=== PATIENT | male | born 1935 | race Caucasian/White ===

== ENCOUNTER → 2017-11-19 09:46 | Outpatient (CLI) | payer MEDICARE, SELFPAY ==
[2017-11-19 12:40] LABS: Absolute Lymphocyte Count 1.92 X10^3/ul (0.83-4.51); Absolute Neutrophil Count 3.8 X10^3/uL (2.0-7.7); Basophil# 0.01 X10^3/uL; Basophil% 0.2 % (0-1); Eosinophil# 0.06 X10^3/uL; Eosinophils% 0.9 % (0-5); Hematocrit 44.5 % (40-54); Hemoglobin 14.7 g/dl (13.0-16.5); Lymphocyte # 1.92 X10^3/ul (4.0); Lymphocyte % 28.8 % (19-41); Mean Corpuscular Hgb 31.6 pg (27.0-32.0); Mean Corpuscular Volume 95.7 fL (80-94); Mean Platelet Vol. 11.3 fl (6.2-12.0); Monocyte# 0.87 X10^3/uL; Monocyte% 13.1 % (0-10); Neutrophil # 3.79 X10^3/uL (2.7-7.7); Neutrophil % 56.8 % (47-70); Platelet Count 141 K/mm3 (150-450); RBC Distribution Width CV 12.5 % (11.6-14.6); RBC Distribution Width SD 42.2 fl (35.1-43.9); Red Blood Count 4.65 M/mm3 (4.6-6.2); White Blood Count 6.7 K/mm3 (4.4-11.0)
[2017-11-19 12:42] LABS: POSITIVE COUNT NO; POSITIVE DIFFERENTIAL NO; POSITIVE MORPHOLOGY NO
[2017-11-19 13:00] LABS: AST(SGOT) 24 U/L (15-37); Alanine Aminotransfer ALT/SGPT 35 U/L (16-61); Albumin, Serum 3.8 g/dL (3.2-5.0); Alkaline Phosphatase 51 U/L (45-117); Anion Gap 8 (5-15); BUN 17 mg/dL (7-18); BUN/Creat Ratio 16.3 RATIO (10-20); Calcium,Total 9.3 mg/dL (8.5-10.1); Chloride 107 mmol/L (98-107); Cholesterol 134 mg/dL (200); Creatinine, Serum 1.04 mg/dL (0.70-1.30); EST Glomerular Filtration Rate 73 mL/min (>60); Est Glom Filt Rate - Afr Amer 88 mL/min (>60); Globulin 3.7 g/dL (2.2-4.2); Glucose 96 mg/dL (74-106); High Density Lipoprotein 44 mg/dL; PSA,Total - Annual Screen 1.21 ng/mL (0.00-4.00); Potassium 4.6 mmol/L (3.5-5.1); Protein, Total 7.5 g/dL (6.4-8.2); Sodium Level 142 mmol/L (136-145); Triglycerides 155 mg/dL; Very Low Density Lipoprotein 31 mg/dL (5-40)
== END ==
PROVIDERS: Visit Provider Family Medicine
DX: Z00.01 Encounter for general adult medical examination with abnormal findings (principal); E78.5 Hyperlipidemia, unspecified; N40.0 Benign prostatic hyperplasia without lower urinary tract symptoms; Z12.5 Encounter for screening for malignant neoplasm of prostate; Z79.899 Other long term (current) drug therapy
CPT/HCPCS: 36415; 80053; 80061; 84153; 85025; G0103

== ENCOUNTER → 2018-09-02 | Outpatient (CLI) | payer MEDICARE, SELFPAY ==
--- NOTE | 2018-09-02 08:23 | CT_ITS ---
STUDY: CT BRAIN WITH AND WITHOUT CONTRAST REASON FOR EXAM: Male, 83 years old. SEVERE HEADACHES X6-8 MONTHS, DIZZINESS,NAUSEA,COLD SWEATS RADIATION DOSAGE (If Supplied By Facility): CTDIvol = ( 44.99 ) mGy, DLP = ( 1580.97 ) mGycm TECHNIQUE: Transaxial CT imaging of the brain was performed pre and post contrast administration. The examination was performed with intravenous administration of 50CC IV Isovue 370. Individualized dose optimization techniques were used for this CT. COMPARISON: None. FINDINGS: Normal soft tissue structures. Normal calvarium. There is mild cerebral atrophy with widening of the extra-axial spaces and ventricular dilatation. There are areas of decreased attenuation within the white matter tracts of the supratentorial brain, consistent with microvascular disease changes. Normal basal ganglia and thalami. Normal brainstem. Normal cerebellum. There is no intracranial hemorrhage. There are no findings of an acute ischemic infarction. Normal visualized paranasal sinuses. CT/Brain/Head W/WO Contrast IMPRESSION: Chronic involutional changes of the brain. Electronically Signed: Inez López, at 7:11 EDT Tel , Service support ,
[2018-09-02 08:46] LABS: EGFR FINGERSTICK > 60.0000 mL/min (>60)
== END | disposition home or self-care (01) ==
PROVIDERS: Family Provider Family Medicine; PCP Family Medicine; Referring Provider Family Medicine; Visit Provider Family Medicine
DX: R42 Dizziness and giddiness (principal); R51 Headache
CPT/HCPCS: 70470; Q9967

== ENCOUNTER 2018-09-16 14:00 | Outpatient (RCR) | payer MEDICARE, SELFPAY ==
--- NOTE | 2018-09-10 15:42 | HP.PTEVAL ---
Patient's Visit Information SAEID CHAMORRO is a 83 year old M referred to Physical Therapy by Jose Beaver DO with a diagnosis of dizzyness. Date of Evaluation: 09/10/18 Physical Therapist: Renzo Leon, CORWINT, OCS, CSCS - Visit Plan Frequency: 1x/Week Duration: 4-6 Weeks Plan: weekly as needed for dizzy check adn positional treatments /vestib rehab as needed/appropriate.Check oculomotor as needed and MSQ if positional is good. - Subjective Findings: Having dizzy spells for about a year but not in the last two weeks. When he does get dizzy, he can be sick to his stomach. That has happened 5x in last year. Had it a couple weeks ago sitting in chair. Another time sitting eating breakfast. May go a while in between incident btu can have up to two a week. Always aware that it might happen. Feels angel in between episodes. Can get dizzy if sits too quick and had one episode lying down. That was 3 months ago for 5 minutes. Activities normal. Basics not a problem. Sleeps well. Not employed. No hobbies. Got lazy on his workouts. Doctor thinks crystals are out of place. No AD needed and no falls. - Objective Walks normal with good balanace. C/S AROM is WNL and painfree. Trasnfersadn steps easily. - B hallpike. slight + R roll test for ageotropic nystagmus and dizzy x 2 seconds. Treated with BBQ roll and BPPV instruct as wella s precautions with any other symptoms to take him to the ER. - Balance Scores Functional Gait Assessment Score: 28 % Disability: 6.6700 CATSIB Score (Max score 120 seconds): 98 - Goals Goal 1:: abolish dizzyness for 2 more weeks adn - roll test. Goal Time Frame: 2-4 Weeks Goal 2:: Pt confident dizzyness is taken care of. Goal Time Frame: 2-4 Weeks - Rehabilitation Potential Physical Therapy Diagnosis: HC BPPV Rehabilitation Potential: Fair - Anticipated Interventions Patient/Client Instruction: Educate patient on: Condition, Plan of Care For the Purpose of:: To increase tolerance to activity/condition/position Comment: psoitional treatments/ex/vestibualr therapy For the Purpose of:: To increase tolerance to activity/condition/position Thank you for the opportunity to evaluate your patient. For Medicare and Medicare HMO plans, please review the plan of care and approve it. It will need to be FAXED BACK to us at [phone] for Medicare purposes. For Medicare only, by signing this I certify the plan of care. Please let me know if there are questions or concerns regarding this plan of care. Physician Signature: Date:
--- NOTE | 2018-09-16 14:22 | HP.PTDCSUM ---
HP - PT D/C Summary It has been my pleasure to treat SAEID CHAMORRO under orders from Jose Beaver DO, for the diagnosis of dizzyness for a total of 2 visit(s). Discharge Date: 09/16/18 Please see the following information for a summary of their discharge status. - Subjective Subjective: No dizzyness for 3 weeks now. Normal acitivities including steps adn housework. - Overall Improvement % Improvement: 100 - Objective Objective/Function: - B hallpike patricia, - roll test. Walks normal. No nystagmus with gaze or head shake. pursuit, saccades adn VOR ar enormal and asymptomatic. - Goals Goal 1:: abolish dizzyness for 2 more weeks adn - roll test. Goal Progress: Goal Met Goal 2:: Pt confident dizzyness is taken care of. Goal Progress: Goal Met - Plan Plan: d/c - D/C Information Discharge Comments: No dizzyness in 3 weeks and feeling confident with normal acitvities. Will contact doctor if dizzyness returns. If there are questions or concerns regarding this patient's physical therapy, please feel free to call me at [phone]. Thank you for the referral of this patient. Sincerely, Renzo Leon, DPT, OCS, CSCS
== END 2018-09-16 19:00 | disposition home or self-care (01) ==
LOC: PT 14:00
PROVIDERS: Family Provider Family Medicine; PCP Family Medicine; Referring Provider Family Medicine; Visit Provider Family Medicine
DX: R42 Dizziness and giddiness (principal)
CPT/HCPCS: 97161; 97530

== ENCOUNTER → 2018-12-10 | Outpatient (CLI) | payer MEDICARE, SELFPAY ==
[2018-12-10 09:36] LABS: Absolute Lymphocyte Count 1.62 X10^3/uL (0.83-4.51); Absolute Neutrophil Count 4.1 X10^3/uL (2.0-7.7); Basophil# 0.03 X10^3/uL; Basophil% 0.4 % (0-1); Eosinophils% 1.4 % (0-5); Hemoglobin 14.4 g/dL (13.0-16.5); Lymphocyte # 1.62 X10^3/ul (4.0); Lymphocyte % 22.3 % (19-41); Mean Corp Hgb Conc 32.7 g/dL (32-36); Mean Corpuscular Hgb 31.6 pg (27.0-32.0); Mean Corpuscular Volume 96.7 fL (80-94); Mean Platelet Vol. 10.6 fl (6.2-12.0); Monocyte# 1.39 X10^3/uL; Monocyte% 19.1 % (0-10); NRBC Flagged by Analyzer 0 % (0-5); Neutrophil # 4.11 X10^3/uL (2.7-7.7); Neutrophil % 56.5 % (47-70); Platelet Count 123 K/mm3 (150-450); RBC Distribution Width CV 12.2 % (11.6-14.6); RBC Distribution Width SD 43.5 fl (35.1-43.9); Red Blood Count 4.55 M/mm3 (4.6-6.2); White Blood Count 7.3 K/mm3 (4.4-11.0)
[2018-12-10 10:13] LABS: ALB/GLOB Ratio 1.1 RATIO (0.9-2.4); AST(SGOT) 22 U/L (15-37); Alanine Aminotransfer ALT/SGPT 28 U/L (16-61); Albumin, Serum 3.8 g/dL (3.2-5.0); Alkaline Phosphatase 57 U/L (45-117); Anion Gap 7 (5-15); BUN 21 mg/dL (7-18); BUN/Creat Ratio 18.9 RATIO (10-20); Chloride 105 mmol/L (98-107); Cholesterol 141 mg/dL (200); Creatinine, Serum 1.11 mg/dL (0.70-1.30); EST Glomerular Filtration Rate 67 mL/min (>60); Est Glom Filt Rate - Afr Amer 82 mL/min (>60); Globulin 3.6 g/dL (2.2-4.2); Glucose 93 mg/dL (74-106); High Density Lipoprotein 44 mg/dL; PSA,Total - Annual Screen 1.08 ng/mL (0.00-4.00); Potassium 4.4 mmol/L (3.5-5.1); Protein, Total 7.4 g/dL (6.4-8.2); Sodium Level 141 mmol/L (136-145); Triglycerides 186 mg/dL; Very Low Density Lipoprotein 37 mg/dL (5-40)
== END | disposition home or self-care (01) ==
LOC: LAB.FUTURE 08:12 → LAB 08:15
PROVIDERS: Family Provider Family Medicine; PCP Family Medicine; Referring Provider Family Medicine; Visit Provider Family Medicine
DX: E78.5 Hyperlipidemia, unspecified (principal); D69.6 Thrombocytopenia, unspecified; Z12.5 Encounter for screening for malignant neoplasm of prostate; Z79.899 Other long term (current) drug therapy
CPT/HCPCS: 36415; 80053; 80061; 84153; 85025; G0103

== ENCOUNTER → 2019-12-13 08:30 | Outpatient (CLI) | payer MEDICARE, SELFPAY ==
[2019-12-13 09:48] LABS: Absolute Lymphocyte Count 2.01 X10^3/uL (0.83-4.51); Basophil# 0.01 X10^3/uL; Basophil% 0.1 % (0-1); Eosinophils% 1.4 % (0-5); Hematocrit 43.6 % (40-54); Hemoglobin 14.1 g/dL (13.0-16.5); Lymphocyte # 2.01 X10^3/ul (4.0); Lymphocyte % 28.2 % (19-41); Mean Corp Hgb Conc 32.3 g/dL (32-36); Mean Corpuscular Hgb 31.6 pg (27.0-32.0); Mean Corpuscular Volume 97.8 fL (80-94); Mean Platelet Vol. 10.7 fl (6.2-12.0); Monocyte# 0.97 X10^3/uL; Monocyte% 13.6 % (0-10); NRBC Flagged by Analyzer 0 % (0-5); Neutrophil % 56.3 % (47-70); Platelet Count 133 K/mm3 (150-450); RBC Distribution Width SD 43.4 fl (35.1-43.9); Red Blood Count 4.46 M/mm3 (4.6-6.2); White Blood Count 7.1 K/mm3 (4.4-11.0)
[2019-12-13 10:17] LABS: AST(SGOT) 26 U/L (15-37); Alanine Aminotransfer ALT/SGPT 35 U/L (16-61); Albumin, Serum 3.6 g/dL (3.2-5.0); Alkaline Phosphatase 55 U/L (45-117); Anion Gap 3 (5-15); BUN 19 mg/dL (7-18); BUN/Creat Ratio 17.8 RATIO (10-20); Calcium,Total 8.9 mg/dL (8.5-10.1); Chloride 110 mmol/L (98-107); Cholesterol 140 mg/dL (200); Creatinine, Serum 1.07 mg/dL (0.70-1.30); EST Glomerular Filtration Rate 70 mL/min (>60); Est Glom Filt Rate - Afr Amer 85 mL/min (>60); Globulin 3.5 g/dL (2.2-4.2); Glucose 93 mg/dL (74-106); High Density Lipoprotein 47 mg/dL; Potassium 4.1 mmol/L (3.5-5.1); Protein, Total 7.1 g/dL (6.4-8.2); Sodium Level 142 mmol/L (136-145); Triglycerides 163 mg/dL; Very Low Density Lipoprotein 33 mg/dL (5-40)
== END ==
PROVIDERS: PCP Family Medicine; Visit Provider Family Medicine
DX: D69.6 Thrombocytopenia, unspecified (principal); E78.5 Hyperlipidemia, unspecified; Z79.899 Other long term (current) drug therapy; Z12.5 Encounter for screening for malignant neoplasm of prostate
CPT/HCPCS: 36415; 80053; 80061; 84153; 85025; G0103

== ENCOUNTER → 2019-12-19 12:12 | Outpatient (CLI) | payer MEDICARE, SELFPAY ==
--- NOTE | 2019-12-19 12:13 | US_ITS ---
STUDY: THYROID ULTRASOUND REASON FOR EXAM: Male, 84 years old. Nodules TECHNIQUE: Ultrasound evaluation of the thyroid was performed with real-time and static irwin-scale imaging. COMPARISON: None. FINDINGS: RIGHT LOBE: The right lobe of the thyroid gland measures 4.5 cm x 1.5 cm x 1.3 cm. There is a homogeneous echotexture. There is a 4 mm x 3 mm x 3 mm solid hypoechoic nodule in the upper pole. A similar appearing nodular density in the upper pole measures 2 mm x 2 mm x 2 mm. LEFT LOBE: The left lobe of the thyroid gland measures 3.9 cm x 1.2 cm x 1.4 cm. There is a homogeneous echotexture. There is an 8 mm x 6 mm x 3 mm isoechoic heterogeneous nodule in the midpole. A similar appearing nodule is seen in the lower pole measuring 2 mm x 3 mm x 3 mm. ISTHMUS: The isthmus measures 3.7 mm. Small bilateral benign appearing cervical lymph nodes are seen. The larger is in the left side measuring 2 cm x 0.97 x 0.6 US/Thyroid IMPRESSION: Subcentimeters nodules are seen in both lobes. Small benign-appearing bilateral cervical lymph nodes. Electronically Signed: Hamilton Robledo, at 15:01 EST , Service support ,
== END ==
PROVIDERS: PCP Family Medicine; Referring Provider Family Medicine; Visit Provider Family Medicine
DX: E04.1 Nontoxic single thyroid nodule (principal)
CPT/HCPCS: 76536

== ENCOUNTER 2020-02-26 09:27 | Outpatient (RCR) | payer MEDICARE, SELFPAY | END 2020-02-26 23:59 | LOC: IMMUN 09:27 | PROVIDERS: PCP Family Medicine; Visit Provider Family Medicine | DX: Z23 Encounter for immunization (principal) | CPT/HCPCS: 0011A; 0012A; 91301 ==

== ENCOUNTER → 2020-08-23 15:31 | Outpatient (CLI) | payer MEDICARE, SELFPAY ==
[2020-08-23 18:10] LABS: Creatinine, Serum 0.93 mg/dL (0.70-1.30); EST Glomerular Filtration Rate 82 mL/min (>60); Est Glom Filt Rate - Afr Amer 99 mL/min (>60)
== END ==
PROVIDERS: PCP Family Medicine; Referring Provider Otolaryngology; Visit Provider Otolaryngology
DX: H93.11 Tinnitus, right ear (principal)
CPT/HCPCS: 36415; 82565

== ENCOUNTER → 2020-09-01 17:34 | Outpatient (CLI) | payer MEDICARE, SELFPAY ==
--- NOTE | 2020-09-01 17:42 | MRI_ITS ---
EXAM: MR HEAD WITHOUT AND WITH INTRAVENOUS CONTRAST CLINICAL INDICATION: Right ear tinnitus. Dizziness. TECHNIQUE: Multiplanar and multisequence MR images of the brain were obtained without and with intravenous contrast. This report was created using [employer] report [employer] technology. CONTRAST: IV Dotarem 18ml COMPARISON: MRI brain with and without contrast 04/23/2014. CT head without contrast 09/02/2018. FINDINGS: BRAIN AND EXTRA-AXIAL SPACES: No diffusion restriction to suspect acute or subacute ischemic infarct. 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 No intra- or extra-axial hemorrhage. No intracranial mass or mass effect. Ventricles are appropriate for age. No hydrocephalus. Basal cisterns are patent. SELLA: Unremarkable. Normal sella turcica, pituitary gland, infundibular stalk, optic chiasm and hypothalamus. AUDITORY SYSTEM: Thin sections of the internal auditory canals show no abnormal contrast enhancement of the 7th and 8th nerve bundles. No abnormal enhancement of the membranous labyrinths. BONES/JOINTS: Unremarkable. No discrete lytic or blastic abnormalities. SINUSES: Unremarkable as visualized. Clear. MASTOID AIR CELLS: Unremarkable as visualized. Clear. ORBITS: Unremarkable as visualized. Both globes, extraocular muscles, optic nerves and retrobulbar fat appear unremarkable. VASCULATURE: Unremarkable as visualized. Normal flow voids in the major intracranial circulation. MRI/Brain W/WO Contrast IMPRESSION: 1. No MRI evidence of acute or subacute ischemic infarct or acute intracranial abnormality. 2. 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 3. Normal MRI of the IACs without and with contrast. 4. No interval change when compared to 04/23/2014. COMMENT: If right tinnitus is pulsatile and dural AV fistula is a clinical consideration, cerebral arteriogram with bilateral external carotid arteriogram will be more helpful. Electronically Signed: Jacob Gill MD at 13:33 EDT , Service support ,
== END ==
PROVIDERS: PCP Family Medicine; Referring Provider Otolaryngology; Visit Provider Otolaryngology
DX: H93.11 Tinnitus, right ear (principal)
CPT/HCPCS: 70553; A9575

== ENCOUNTER 2020-10-26 05:42 | Inpatient (IN) | payer MEDICARE, SELFPAY ==
[2020-10-26] VITALS (19 sets, daily range): BP systolic 102–151; BP diastolic 55–106; PULSE 64–100; RESP 18–30; TEMP 36.1–38; O2SAT 88–96; BMI 28.5
--- NOTE | 2020-10-26 06:04 | RAD_ITS ---
STUDY: X-RAY CHEST REASON FOR EXAM: Male, 85 years old. SOB TECHNIQUE: Single AP portable view of the chest. COMPARISON: None. FINDINGS: The patchy right upper lobe patchy left lower lobe infiltrate. There is no demonstrated pleural abnormality. Normal size heart. Normal mediastinum and cheyanne. Normal visualized pulmonary arteries. Normal visualized aortic arch and descending thoracic aorta. There are diffuse degenerative changes of the visualized thoracic spine. Normal visualized ribs, clavicles, and shoulders. There is no demonstrated abnormality of the visualized soft tissue structures of the upper abdomen. RAD/Chest 1 View (Portable) IMPRESSION: Multifocal infiltrates suspicious for pneumonia. Electronically Signed: Kathie Hall MD at 7:07 EDT Tel , Service support ,
--- NOTE | 2020-10-26 06:04 | EKG12_ITS ---
Test Reason : SPB Blood Pressure : / mmHG Vent. Rate : 085 BPM Atrial Rate : 085 BPM P-R Int : 174 ms QRS Dur : 078 ms QT Int : 326 ms P-R-T Axes : -06 019 077 degrees QTc Int : 387 ms Normal sinus rhythm Nonspecific T wave abnormality Abnormal ECG Confirmed by FILIBERTO FOX, ANITA ([id number]), commercial production editor KORI UMANZOR ([id number]) on 10/29/2020 10:01:54 AM Referred By: TRISH Confirmed By:ANITA DE LOS SANTOS MD
--- NOTE | 2020-10-26 06:06 | EDS_ITS ---
HPI History of Present Illness Chief Complaint: Shortness of Breath Informant: patient and family Narrative Narrative: Patient presents with dyspnea. This started in early September. It sounds like it was a relatively short onset. He has had some cough but no sputu m production. No hemoptysis. No travel surgery immobilization personal family history of DVT or PE. He states he gets short of breath when he walks across the room or walks any distance. He is able to lay flat. The reason he came in today is that his daughter checked his oxygen level at home and it was dropping into the 80s. It sounds like he saw his doctor about a month ago and had a work-up with some x-rays and blood work but nothing showed. He has not been having fevers. He does have myalgias but has been having those for 5 or 6 weeks. He is a former smoker but quit 48 years ago. He has no history of heart disease or lung disease. He does have cholesterol. No known chemical exposures or significant chemical exposures during his life. Activity makes the symptoms worse and rest makes them better. When I talked to the patient's , she states that this did start a couple months ago but that he seems to have gotten worse in the last few days just as she has. PFSH [facility] Medical History High cholesterol Home Medications simvastatin 20 mg PO QHS 07/24/13 [History Last Taken Unknown] ibuprofen-diphenhydramine cit [Advil PM] 1 cap PO QHS 10/26/20 [History Last Taken Unknown] Allergy/AdvReac Type Severity Reaction Status Date / Time No Known Allergies Allergy Verified 10/26/20 05:45 Surgical History H/O arthroscopic knee surgery Social History Smoking Status: Former smoker ROS ROS ED Constitutional Constitutional ED: Denies chills or fever(s) Eyes Eyes: Denies blurry vision ENT ENT ED: Denies rhinorrhea or sore throat Cardiovascular Cardiovascular: Denies chest pain or orthopnea Respiratory/Chest Respiratory/Chest: Reports cough, dyspnea and dyspnea on exertion; Denies ortho pnea Gastrointestinal Gastrointestinal: Denies abdominal pain, nausea or vomiting Genitourinary Genitourinary ED: Denies dysuria Musculoskeletal Musculoskeletal: Reports myalgias Integumentary Denies rash Neurologic Neurologic: Denies paresthesias or weakness Endocrine Endocrinology: Denies polydipsia or polyuria Hematologic/Lymphatic Hematologic/Lymphatic: Denies easy bleeding or easy bruising Allergic/Immunologic Allergic/Immunologic ED: Denies urticaria EXAM Physical Exam Const Vital Signs: 10/26/20 05:43 10/26/20 05:45 10/26/20 05:51 Temperature 98.3 F 98.3 F Temperature Source Temporal Temporal Pulse Rate 88 88 Respiratory Rate 28 H 28 H Respiratory Effort Short of Breath Labored Respiratory Pattern Tachypnea Blood Pressure 129/106 H 130/67 H Blood Pressure Mean 113 88 Pulse Ox 92 92 Oxygen Delivery Method Room Air Room Air Oxygen Flow Rate (L/min) 10/26/20 06:18 10/26/20 06:49 10/26/20 07:26 Temperature 100.4 F H 99.3 F H Temperature Source Oral Temporal Pulse Rate 94 90 83 Respiratory Rate 20 H 30 H 29 H Respiratory Effort Respiratory Pattern Normal Blood Pressure 116/64 102/62 Blood Pressure Mean 81 75 Pulse Ox 96 94 Oxygen Delivery Method Nasal Cannula Nasal Cannula Oxygen Flow Rate (L/min) 2 2 10/26/20 08:47 10/26/20 08:49 Temperature 100 F H 100 F H Temperature Source Temporal Temporal Pulse Rate 81 100 Respiratory Rate 26 H 26 H Respiratory Effort Respiratory Pattern Blood Pressure 105/55 L 105/55 L Blood Pressure Mean 71 71 Pulse Ox 94 94 Oxygen Delivery Method Nasal Cannula Nasal Cannula Oxygen Flow Rate (L/min) 2 2 Positive well nourished and well developed Constitutional Narrative: Patient looks nontoxic but his work of breathing is increased. General Appearance ED: well developed; Negative for pallor HEENT Reports moist mucous membranes atraumatic Eyes General Eye ED: Negative for pale conjunctiva or scleral icterus Neck no JVD Resp Resp Narrative: Patient has creased respiratory effort. His respiratory rate is increased. When he talks his saturations dropped down to 88% just sitting in the bed. He does have some basilar crackles on each side. Cardio regular rate, regular rhythm and no murmurs GI non-tender Palpation: soft Back/Spine no CVA tenderness and normal to inspection Extremity normal to inspection General Extremety ED: Negative for edema or tenderness General Extremity: Negative for edema Neuro [place] Coma Scale: document GCS findings Sensorium / Orientation: alert Psych mental status grossly normal Skin General Skin Exam: Negative for pallor Lesions: no lesions Rashes: no rashes MDM MDM MDM Narrative Medical decision making narrative: Patient CBC showed no marked abnormalities. Electrolytes showed mild BUN to creatinine ratio increased but no acute process. BNP was negative. Chest x-ray was concerning for multiple infiltrates. His Covid is positive. However, his symptoms started back in early September. They seem to get a little bit better and now they are getting worse again. With the story I did do a CT scan of his chest to make sure we were not seeing other illness. There is no sign of pulmonary embolus or other process. There is a multiple infiltrative process consistent with Covid. This patient desatted just on room air sitting in the bed. He dropped to 88%. He looks dyspneic. He has increased respiratory rate. I do not think this is a good patient to go home on oxygen acutely. I have hospitalist on page. He has been treated with Decadron. He did get a bit of a fever here so he is given Tylenol. Patient requested something for anxiety. Evidently he has been on meds for this before. He is just nervous because of the Covid and being admitted. I will give him a very small dose of Ativan. Lab Data Attestation: I reviewed the patient's lab results. Labs: Laboratory Results - last 24 hr 10/26/20 10/26/20 10/26/20 06:20 06:20 06:20 WBC 6.8 RBC 4.37 L Hgb 14.0 Hct 43.0 MCV 98.4 H MCH 32.0 MCHC 32.6 RDW Std Deviation 43.9 RDW Coeff of Kapil 12.1 Plt Count 67 L MPV 10.4 Immature Gran % (Auto) 0.400 Neut % (Auto) 68.4 Lymph % (Auto) 14.1 L [place] % (Auto) 16.0 H Eos % (Auto) 1.0 Baso % (Auto) 0.1 Absolute Neuts (auto) 4.6 Absolute Lymphs (auto) 0.95 Nucleated RBC % 0 Sodium 136 Potassium 4.1 Chloride 106 Carbon Dioxide 25.0 Anion Gap 5 BUN 24 H Creatinine 0.97 Estim Creat Clear Calc 58.53 Est GFR (MDRD) Af Amer 95 Est GFR (MDRD) Non-Af 78 BUN/Creatinine Ratio 24.8 H Glucose 112 H Calcium 8.7 Troponin I High Sens 16 B-Natriuretic Peptide 41.3 Radiography Diagnostic Testing: Radiology Impression Chest X-Ray 10/26/20 06:04 IMPRESSION: Multifocal infiltrates suspicious for pneumonia. Electronically Signed: Kathie Hall MD at 7:07 EDT Tel , Service support , Chest CTA 10/26/20 07:04 IMPRESSION: No demonstrated pulmonary embolism or arterial dissection. Bilateral pneumonia. Electronically Signed: Christophe Thomson MD at 8:01 EDT , Service support , EKG Initial EKG: Comments: EKG done for dyspnea read by me shows normal sinus rhythm with overall rate of 85. No ectopy. Nonspecific ST and T wave changes but no sign of acute infarct or ischemia. SC interval, QRS duration and QTc are normal. Discharge Plan Dx/Rx/DC Orders Clinical Impression: Pneumonia due to 2019-nCoV, Hypoxia Disposition Disposition: Acute Care Hospital [facility]
[2020-10-26 06:32] LABS: Absolute Lymphocyte Count 0.95 X10^3/uL (0.83-4.51); Absolute Neutrophil Count 4.6 X10^3/uL (2.0-7.7); Basophil# 0.01 X10^3/uL; Basophil% 0.1 % (0-1); Eosinophil# 0.07 X10^3/uL; Lymphocyte # 0.95 X10^3/ul (0.83-4.51); Lymphocyte % 14.1 % (19-41); Mean Corp Hgb Conc 32.6 g/dL (32-36); Mean Corpuscular Volume 98.4 fL (80-94); Mean Platelet Vol. 10.4 fl (6.2-12.0); Monocyte# 1.08 X10^3/uL; NRBC Flagged by Analyzer 0 % (0-5); Neutrophil # 4.61 X10^3/uL (2.7-7.7); Neutrophil % 68.4 % (47-70); POSITIVE COUNT YES; Platelet Count 67 K/mm3 (150-450); RBC Distribution Width CV 12.1 % (11.6-14.6); RBC Distribution Width SD 43.9 fl (35.1-43.9); Red Blood Count 4.37 M/mm3 (4.6-6.2); White Blood Count 6.8 K/mm3 (4.4-11.0)
[2020-10-26] MEDS: Ipratropium/Albuterol Sulfate 3 ML AMPUL.NEB INHALATION (06:34)
[2020-10-26 06:36] LABS: Differential Indicated SCAN CRITERIA MET
[2020-10-26 06:51] LABS: Anion Gap 5 (5-15); BUN 24 mg/dL (7-18); BUN/Creat Ratio 24.8 RATIO (10-20); Calcium,Total 8.7 mg/dL (8.5-10.1); Chloride 106 mmol/L (98-107); Creatinine, Serum 0.97 mg/dL (0.70-1.30); EST Glomerular Filtration Rate 78 mL/min (>60); Est Glom Filt Rate - Afr Amer 95 mL/min (>60); Estimated Creatinine Clearance 58.53 ml/min; Glucose 112 mg/dL (74-106); Potassium 4.1 mmol/L (3.5-5.1); Sodium Level 136 mmol/L (136-145); Troponin-I HS 16 pg/mL (3.0-78.0)
--- NOTE | 2020-10-26 07:04 | CT_ITS ---
STUDY: CTA CHEST w w/o REASON FOR EXAM: Male, 85 years old. pe SOB, WEAKNESS, FATIGUE, + COVID, HAD VACCINE RADIATION DOSAGE (If Supplied By Facility): CTDIvol = ( 16.8 ) mGy, DLP = ( 429.24 ) mGycm TECHNIQUE: The examination was performed with and without the intravenous administration of IV 100mL Isovue-370. Post-processing of the angiographic images was performed, with multiplanar reformation and 3D reconstruction. Individualized dose optimization techniques were used for this CT. COMPARISON: None. FINDINGS: Groundglass infiltrates in the lower lung brown. There are degenerative changes of the shoulders. There is no pneumothorax. There is no demonstrated pleural abnormality. Minimal infiltrate in the right middle lobe and lingula. Diffuse groundglass infiltrate of the right upper lobe greater than the left. There are calcifications of the coronary arteries. Normal mediastinum. Normal hilar regions. Normal pulmonary arteries. There is atherosclerotic calcification of the aortic arch with tortuosity and elongation of the aortic arch and descending thoracic aorta. There are multi-level degenerative changes of the thoracic spine. Simple cysts of the liver. No follow-up required. There is a hiatal hernia. CT/CTA Chest W/WO Contrast IMPRESSION: No demonstrated pulmonary embolism or arterial dissection. Bilateral pneumonia. Electronically Signed: Christophe Thomson MD at 8:01 EDT , Service support ,
[2020-10-26 07:08] LABS: BNP,B-Type NATRIURETIC PEPTIDE 41.3 pg/mL (0-100)
[2020-10-26] MEDS: dexAMETHasone 4 MG/ML Vial 6 MG IV (07:20)
[2020-10-26] MEDS: Acetaminophen 325 MG Tablet 650 MG PO (08:46)
[2020-10-26] MEDS: LORazepam 2 MG/ML Syringe 0.25 MG IV (08:55)
[2020-10-26 09:30] LABS: AST(SGOT) 34 U/L (15-37); Alanine Aminotransfer ALT/SGPT 33 U/L (16-61); Albumin, Serum 2.9 g/dL (3.2-5.0); Alkaline Phosphatase 41 U/L (45-117); Bilirubin, Direct 0.13 mg/dL (0.00-0.30); Globulin 3.6 g/dL (2.2-4.2); Protein, Total 6.5 g/dL (6.4-8.2)
[2020-10-26] MEDS: Enoxaparin 40 MG/0.4 ML Syringe SC (14:44)
--- NOTE | 2020-10-26 19:47 | HP.PCM.HOS_ITS ---
HPI - General General Date of Admission: 10/26/20 Date of Service: 10/26/20 Chief Complaint: Shortness of breath HPI Narrative SAEID CHAMORRO, is a 85 M who presents to the emergency room at [facility] with a chief complaint of shortness of breath, he complained somewhat of shortness of breath early in September of this year, he also complained of cough but no sputum production. Patient was immunized for COVID-19. His daughter noted at home today that his oxygen level was dropping when his pulse ox was taken hyphenated been dropping into the 80s. Patient is a former smoker but quit 48 years ago. Work-up in the emergency room included labs which showed a normal white blood cell count, CTA of the chest was done which showed no evidence of pulmonary embolus but there was an infiltrative process noted consistent with Covid. At rest, patient's pulse ox dropped to 88% in the emergency room patient exhibited an increased respiratory rate in the emergency room. Patient was admitted to [facility] for COVID-19 pneumonia with hypoxic respiratory failure. FORMERLY [facility], [facility]–1983 Medical History High cholesterol Home Medications simvastatin 20 mg PO QODAY 07/24/13 [History Last Taken 10/25/20] acetaminophen [Tylenol Ex Str Arthritis Pain] 1,000 mg PO Q6H PRN 10/26/20 [History Last Taken Unknown] ibuprofen-diphenhydramine cit [Advil PM] 1 cap PO QHS 10/26/20 [History Last T aken Unknown] Allergy/AdvReac Type Severity Reaction Status Date / Time No Known Allergies Allergy Verified 10/26/20 05:45 Surgical History H/O arthroscopic knee surgery Social History Smoking Status: Former smoker ROS Constitutional Constitutional: Reports fatigue; Denies anorexia, change in weight, fever(s), n ight sweats or weakness Eyes Eyes: Denies blurry vision, change in vision, discharge from eye(s) or eye pain ENT HEENT: Denies abnormal hearing Cardiovascular Cardiovascular: Reports dyspnea on exertion; Denies chest pain, claudication, edema or palpitations Respiratory/Chest Respiratory/Chest: Reports cough, dyspnea and shortness of breath with exertion; Denies hemoptysis or shortness of breath at rest Gastrointestinal Gastrointestinal: Denies abdominal pain, coffee ground emesis, constipation, diarrhea, dyspepsia, hematemesis, hematochezia, melena, nausea or vomiting Genitourinary Genitourinary: Denies dysuria, hematuria, urinary frequency, urinary hesitancy, urinary incontinence or urinary urgency Musculoskeletal Musculoskeletal: Denies back pain, joint pain, joint stiffness, joint swelling, myalgias or neck pain Neurologic Neurologic: Denies abnormal gait, abnormal speech, dizziness, focal weakness, headache(s), loss of vision, numbness, other visual disturbances, paresthesias, syncope or tingling Psychiatric Psychiatric: Denies anxiety, cognitive impairment, depression, irritability, mood swings or suicidal ideation Endocrine Endocrinology: Denies change in body appearance, cold intolerance, excessive sweating, heat intolerance, polydipsia or polyuria Hematologic/Lymphatic Hematologic/Lymphatic: Denies none, anemia, easy bleeding, easy bruising or lymphadenopathy Allergic/Immunologic Allergic/Immunologic: Denies rhinitis, urticaria, eczemia or asthma Vital Signs Vital Signs Vital Signs: 10/26/20 05:43 10/26/20 05:45 10/26/20 05:51 Temperature 98.3 F 98.3 F Temperature Source Temporal Temporal Pulse Rate 88 88 Respiratory Rate 28 H 28 H Respiratory Effort Short of Breath Labored Respiratory Depth Respiratory Pattern Tachypnea Blood Pressure 129/106 H 130/67 H Blood Pressure Mean 113 88 Blood Pressure Source Blood Pressure Position Blood Pressure Location Pulse Ox 92 92 Oxygen Delivery Method Room Air Room Air Oxygen Flow Rate (L/min) 10/26/20 06:18 10/26/20 06:49 10/26/20 07:26 Temperature 100.4 F H 99.3 F H Temperature Source Oral Temporal Pulse Rate 94 90 83 Respiratory Rate 20 H 30 H 29 H Respiratory Effort Respiratory Depth Respiratory Pattern Normal Blood Pressure 116/64 102/62 Blood Pressure Mean 81 75 Blood Pressure Source Blood Pressure Position Blood Pressure Location Pulse Ox 96 94 Oxygen Delivery Method Nasal Cannula Nasal Cannula Oxygen Flow Rate (L/min) 2 2 10/26/20 08:47 10/26/20 08:49 10/26/20 10:00 Temperature 100 F H 100 F H 97.8 F Temperature Source Temporal Temporal Oral Pulse Rate 81 100 78 Respiratory Rate 26 H 26 H 18 Respiratory Effort Respiratory Depth Normal Respiratory Pattern Blood Pressure 105/55 L 105/55 L 110/68 Blood Pressure Mean 71 71 82 Blood Pressure Source Monitor Blood Pressure Position Semi-Fowlers Blood Pressure Location Left Arm Pulse Ox 94 94 Oxygen Delivery Method Nasal Cannula Nasal Cannula Nasal Cannula Oxygen Flow Rate (L/min) 2 2 2 10/26/20 13:27 10/26/20 15:45 10/26/20 16:30 Temperature 97.0 F L 97.9 F Temperature Source Temporal Oral Pulse Rate 71 71 73 Respiratory Rate 18 20 H Respiratory Effort Respiratory Depth Respiratory Pattern Blood Pressure 103/64 149/78 H Blood Pressure Mean 77 101 Blood Pressure Source Monitor Monitor Blood Pressure Position Sitting Sitting Blood Pressure Location Left Arm Right Arm Pulse Ox 95 92 Oxygen Delivery Method Nasal Cannula Nasal Cannula Oxygen Flow Rate (L/min) 2 3 10/26/20 16:39 Temperature Temperature Source Pulse Rate Respiratory Rate Respiratory Effort Respiratory Depth Respiratory Pattern Blood Pressure Blood Pressure Mean Blood Pressure Source Blood Pressure Position Blood Pressure Location Pulse Ox 88 Oxygen Delivery Method Room Air Oxygen Flow Rate (L/min) Weight Weight: 90.1 kg Body Mass Index (BMI) 28.5 Physical Exam Const alert, oriented x3, no apparent distress and healthy appearing General Appearance: cooperative, well kempt and well developed Orientation / Consciousness: awake, oriented to person, oriented to place and oriented to time HEENT normocephalic and moist oral mucous membranes Eyes PERRL, EOMs intact bilaterally and conjunctivae normal Neck nuchal rigidity, supple, no JVD, thyroid normal and no carotid bruits General: trachea midline Resp normal respiratory effort, no retractions, no use of accessory muscles and clear to auscultation bilaterally Auscultation: wheezes expiratory wheezes and scattered wheezes; Negative for rales or rhonchi Cardio regular rate, regular rhythm, no murmurs, no rub and no gallops GI normal to inspection, nondistended, normoactive bowel sounds, soft to palpation, non-tender and non-distended Extremity no clubbing, cyanosis or edema Skin no rashes or lesions noted General Skin Exam: no breakdown Neuro oriented x3, CN's II-XII intact bilaterally, no focal motor deficits and no sensory deficits noted Sensorium / Orientation: awake and alert Speech: speech normal Psych thought process normal and affect normal Results Lab / Micro Data Result Diagrams: 10/26/20 06:20 10/26/20 06:20 Labs: Laboratory Results - last 24 hr 10/26/20 06:20: WBC 6.8, RBC 4.37 L, Hgb 14.0, Hct 43.0, MCV 98.4 H, MCH 32.0, MCHC 32.6, RDW Std Deviation 43.9, RDW Coeff of Kapil 12.1, Plt Count 67 L, MPV 10.4, Immature Gran % (Auto) 0.400, Neut % (Auto) 68.4, Lymph % (Auto) 14.1 L, [place] % (Auto) 16.0 H, Eos % (Auto) 1.0, Baso % (Auto) 0.1, Absolute Neuts (auto) 4.6, Absolute Lymphs (auto) 0.95, Nucleated RBC % 0 10/26/20 06:20: Sodium 136, Potassium 4.1, Chloride 106, Carbon Dioxide 25.0, Anion Gap 5, BUN 24 H, Creatinine 0.97, Estim Creat Clear Calc 58.53, Est GFR (MDRD) Af Amer 95, Est GFR (MDRD) Non-Af 78, BUN/Creatinine Ratio 24.8 H, Glucose 112 H, Calcium 8.7, Troponin I High Sens 16 10/26/20 06:20: B-Natriuretic Peptide 41.3 10/26/20 06:20: Total Bilirubin 0.50, Direct Bilirubin 0.13, AST 34, ALT 33, Alkaline Phosphatase 41 L, Total Protein 6.5, Albumin 2.9 L, Globulin 3.6 Micro: Microbiology 10/26/20 05:47 Nasal Secretion SARS-CoV-2 Antigen (Rapid) - Final SARS-CoV-2 (COVID 19) Radiology Impression Chest X-Ray 10/26/20 06:04 IMPRESSION: Multifocal infiltrates suspicious for pneumonia. Electronically Signed: Kathie Hall MD at 7:07 EDT Tel , Service support , Chest CTA 10/26/20 07:04 IMPRESSION: No demonstrated pulmonary embolism or arterial dissection. Bilateral pneumonia. Electronically Signed: Christophe Thomson MD at 8:01 EDT , Service support , Assessment & Plan Assessment/Plan (1) Pneumonia due to 2019-nCoV: PLAN: 1. COVID-19 pneumonia-patient was placed on remdesivir and dexamethasone-day 1 #2 acute hypoxic respiratory failure secondary to #1, patient has been having some wheezing on my examination tonight, I have decided to place patient on 3 times daily aerosol treatments. #3 hyperlipidemia-patient is on simvastatin Charges/Coding Visit Charges Inpatient E&M: 86162 Init Hosp L3
[2020-10-26] MEDS: Albuterol 2.5 MG/3 ML VIAL.NEB. INHALATION (22:40)
[2020-10-27] VITALS (20 sets, daily range): BP systolic 123–164; BP diastolic 68–89; PULSE 64–109; RESP 16–22; TEMP 36.5–37.2; O2SAT 91–96
[2020-10-27] MEDS: Temazepam 15 MG Capsule PO (01:20)
[2020-10-27 07:04] LABS: Hematocrit 43.8 % (40-54); Hemoglobin 14.5 g/dL (13.0-16.5); Mean Corp Hgb Conc 33.1 g/dL (32-36); Mean Corpuscular Hgb 32.1 pg (27.0-32.0); Mean Corpuscular Volume 96.9 fL (80-94); Mean Platelet Vol. 10.3 fl (6.2-12.0); POSITIVE COUNT YES; Platelet Count 78 K/mm3 (150-450); Red Blood Count 4.52 M/mm3 (4.6-6.2); White Blood Count 12.6 K/mm3 (4.4-11.0)
[2020-10-27 07:46] LABS: ALB/GLOB Ratio 0.8 RATIO (0.9-2.4); AST(SGOT) 45 U/L (15-37); Alanine Aminotransfer ALT/SGPT 35 U/L (16-61); Albumin, Serum 3.1 g/dL (3.2-5.0); Alkaline Phosphatase 43 U/L (45-117); Anion Gap 7 (5-15); BUN 27 mg/dL (7-18); BUN/Creat Ratio 25.2 RATIO (10-20); Calcium,Total 8.8 mg/dL (8.5-10.1); Chloride 108 mmol/L (98-107); Creatinine, Serum 1.07 mg/dL (0.70-1.30); EST Glomerular Filtration Rate 70 mL/min (>60); Est Glom Filt Rate - Afr Amer 85 mL/min (>60); Estimated Creatinine Clearance 53.06 ml/min; Glucose 119 mg/dL (74-106); Potassium 4.1 mmol/L (3.5-5.1); Protein, Total 7.1 g/dL (6.4-8.2); Sodium Level 136 mmol/L (136-145)
[2020-10-27] MEDS: Albuterol 2.5 MG/3 ML VIAL.NEB. INHALATION ×3 (08:17→20:28)
[2020-10-27] MEDS: dexAMETHasone 4 MG Tablet 6 MG PO (08:30)
[2020-10-27] MEDS: Enoxaparin 40 MG/0.4 ML Syringe SC (08:30)
--- NOTE | 2020-10-27 10:33 | NURSING ---
attempt to call cornelio , daughter in RX unsucessful, phone answered then placed on hold for long period of time
--- NOTE | 2020-10-27 11:12 | NURSING ---
assisted pt w/calling and then talked to his daughter Mitesh for update
--- NOTE | 2020-10-27 11:30 | CASEMGMT ---
AVINASH HAUSER Assessment: Face to Face with pt for initial transition planning/care coordination assessment. AVINASH HAUSER introduced self and role at [facility], pt voices understanding and consents to assessment. Pt is A/O x4 and answers all questions appropriately at this time. Pt lying in bed with O2 on in and visibly sob with conversation. Care providers, pharmacy, and demographics verified/updated. Admitting Dx: COVID PCP:Saranya Specialists: Carmen, ENT; Leo, eye; Julio, derm Preferred Pharmacy: [facility] Retail Insurance: [employer] Prescription Benefit: yes LW/HPOA: Pt has a LW/DPOA on file at [facility]. His DPOA is his Parisa Vega. LNOK: Parisa Vega, ; Mitesh Kent, dtr Living Arrangements: Pt lives with in a single story condo with no steps to enter. Pt states he was I in ADL's prior to hospitalization. Pt denies concerns at home. Transportation: Pt has not driven in the last week and a half but typically does. DME/HHC/SNF: Pt has no DME in the home for himself. Pt has had previous HHC but is unsure of the name of the agency. Pt denies SNF stays. Pt is positive for COVID as well. Pt states his family is able to bring him and his groceries and supplies. Provided pt with a list of local in network DME companies, pt chose [employer] should he need O2 at dc. Pt tried to get up to the edge of the bed and patient states he feels very weak. He states he every day walks 3 miles up until he became sick with COVID. Asked pt if he would be interested in some therapy while in the hospital. He did agree. This CM will speak to the doctor for an order. Pt states no concerns with going home at time of dc. Pt states no further concerns/needs. CM to follow. Advised pt to ask CM if any further question/concerns/needs arise, voices understanding. Pt Goal: Home Plan: Home, will follow for HHC therapy.
--- NOTE | 2020-10-27 15:19 | CHAPLAIN ---
Type of Pastoral Visit ___ Initial Visit ___ Follow-up Visit ___ On-call Visit ___ General Patient Visit ___ Spiritual Assessment ___ Family Conference ___ Bereavement ___ Rapid Response ___ Code Blue ___ Other (describe below) Pastoral Care Referral From ___ Patient ___ Family ___ Nurse ___ Physician ___ Risk Prevention Engineer ___ Customer Success Director ___ Other (describe below) Sacrament/Intervention ___ Active listening ___ Anointing ___ Evangelical ___ Bereavement ___ Communion ___ Isaura exploration ___ ___ Life review ___ Prayer ___ Reconciliation ___ Sacrament of Sick ___ Supportive presence ___ Wedding ___ Other (describe below) Pastoral Comments phone call attempts made yesterday and today but phone line cuts out after three rings;
--- NOTE | 2020-10-27 15:37 | CASEMGMT ---
Social Work Note Per tariff clerk questions, pt has completed HCPOA and LW and provided documents to [facility]. SW reviewed chart. Both HPCPOA and LW are on file at [facility]. SW printed off documents and placed on pt's chart. Alla Levine MSW, DAIRY QUALITY ASSURANCE OFFICER
--- NOTE | 2020-10-27 19:00 | PCM.PN.HOSP ---
Subjective Subjective Patient was seen and examined today, I placed him on some Ativan for generalized anxiety. Patient is currently on 4 L of nasal cannula oxygen now, he does not complain of any shortness of breath to this examiner, I talked at length with his daughter by phone today. Objective Data Objective Data Vital Signs: Vital Signs Temp Pulse Resp BP Pulse Ox 99.0 F 71 20 H 131/68 H 92 10/27/20 17:00 10/27/20 17:00 10/27/20 17:00 10/27/20 17:00 10/27/20 17:00 Oxygen Flow Rate (L/min) 4 Oxygen Delivery Method Nasal Cannula Weight: 90.1 kg Body Mass Index (BMI) 28.5 Intake & Output: Intake and Output for Last 24 Hours 10/25/20 10/26/20 10/27/20 23:59 23:59 23:59 Intake Total 600 / 600 350 / 350 Output Total 575 / 575 200 / 200 Balance 25 / 25 150 / 150 Lab / Micro Data Result Diagrams: 10/27/20 06:45 10/27/20 06:45 Labs: Laboratory Results - last 24 hr 10/27/20 06:45: WBC 12.6 H, RBC 4.52 L, Hgb 14.5, Hct 43.8, MCV 96.9 H, MCH 32.1 H, MCHC 33.1, RDW Std Deviation 43.0, RDW Coeff of Kapil 12.0, Plt Count 78 L, MPV 10.3 10/27/20 06:45: Sodium 136, Potassium 4.1, Chloride 108 H, Carbon Dioxide 21.0, Anion Gap 7, BUN 27 H, Creatinine 1.07, Estim Creat Clear Calc 53.06, Est GFR (MDRD) Af Amer 85, Est GFR (MDRD) Non-Af 70, BUN/Creatinine Ratio 25.2 H, Glucose 119 H, Calcium 8.8, Total Bilirubin 0.50, AST 45 H, ALT 35, Alkaline Phosphatase 43 L, Total Protein 7.1, Albumin 3.1 L, Globulin 4.0, Albumin/Globulin Ratio 0.8 L Micro: Microbiology 10/26/20 05:47 Nasal Secretion SARS-CoV-2 Antigen (Rapid) - Final SARS-CoV-2 (COVID 19) Physical Exam Const alert, oriented x3, no apparent distress and healthy appearing General Appearance: cooperative, well kempt and well developed Orientation / Consciousness: awake, oriented to person, oriented to place and oriented to time HEENT normocephalic, head/scalp atraumatic and moist oral mucous membranes Head and Scalp: normocephalic Eyes PERRL, EOMs intact bilaterally and conjunctivae normal Neck nuchal rigidity, supple, no JVD, thyroid normal and no carotid bruits General: trachea midline Resp normal respiratory effort, no retractions, no use of accessory muscles and clear to auscultation bilaterally Auscultation: Negative for rales, rhonchi or wheezes Cardio regular rate, regular rhythm, no murmurs, no rub and no gallops GI normal to inspection, nondistended, normoactive bowel sounds, soft to palpation, non-tender and non-distended Extremity no clubbing, cyanosis or edema Skin no rashes or lesions noted General Skin Exam: no breakdown Neuro oriented x3, CN's II-XII intact bilaterally, no focal motor deficits and no sensory deficits noted Sensorium / Orientation: awake and alert Speech: speech normal Psych thought process normal and affect normal Assessment & Plan Assessment/Plan (1) Pneumonia due to 2019-nCoV: PLAN: 1. COVID-19 pneumonia-patient was placed on remdesivir and dexamethasone-day 2 #2 acute hypoxic respiratory failure secondary to #1, wean oxygen as tolerated #3 hyperlipidemia-patient is on simvastatin Charges/Coding Visit Charges Inpatient E&M: 61897 Subs Hosp L2
[2020-10-27] MEDS: 0.9% Saline Lock 10 ML Syringe IV (22:08)
[2020-10-27] MEDS: LORazepam 0.5 MG Tablet 0.25 MG PO (22:16)
[2020-10-28] VITALS (13 sets, daily range): BP systolic 132–150; BP diastolic 61–73; PULSE 60–88; RESP 18–22; TEMP 36.3–36.6; O2SAT 92–97
[2020-10-28] MEDS: Calcium Carbonate 500 MG Tablet 1000 MG PO ×2 (03:34→21:00)
[2020-10-28] MEDS: Albuterol 2.5 MG/3 ML VIAL.NEB. INHALATION ×2 (08:20→21:06)
[2020-10-28] MEDS: Atorvastatin Calcium 10 MG Tablet PO (10:33)
[2020-10-28] MEDS: dexAMETHasone 4 MG Tablet 6 MG PO (10:33)
[2020-10-28] MEDS: Enoxaparin 40 MG/0.4 ML Syringe SC (10:33)
[2020-10-28] MEDS: 0.9% Saline Lock 10 ML Syringe IV (10:34)
[2020-10-28] MEDS: LORazepam 0.5 MG Tablet 0.25 MG PO ×2 (10:34→20:59)
--- NOTE | 2020-10-28 13:20 | NURSING ---
87% ON 3L NC WITH ACTIVITY
--- NOTE | 2020-10-28 14:47 | CHAPLAIN ---
Type of Pastoral Visit ___ Initial Visit ___ Follow-up Visit ___ On-call Visit ___ General Patient Visit ___ Spiritual Assessment ___ Family Conference ___ Bereavement ___ Rapid Response ___ Code Blue ___ Other (describe below) Pastoral Care Referral From ___ Patient ___ Family ___ Nurse ___ Physician ___ Plant Safety Leader ___ Community Services Officer ___ Other (describe below) Sacrament/Intervention ___ Active listening ___ Anointing ___ Yarsanism ___ Bereavement ___ Communion ___ Isaura exploration ___ ___ Life review ___ Prayer ___ Reconciliation ___ Sacrament of Sick ___ Supportive presence ___ Wedding ___ Other (describe below) Pastoral Comments patient cannot be reached by phone so card is left at door to support pt
--- NOTE | 2020-10-28 19:01 | PN.HOSP_ITS ---
Subjective Subjective Patient was seen and examined today, he is currently on 3 L via nasal cannula. Patient does not complain of any shortness of breath at rest. Objective Data Objective Data Vital Signs: Vital Signs Temp Pulse Resp BP Pulse Ox 97.4 F L 75 20 H 134/63 H 96 10/28/20 15:30 10/28/20 15:30 10/28/20 15:30 10/28/20 15:30 10/28/20 16:00 Oxygen Flow Rate (L/min) 3 Oxygen Delivery Method Nasal Cannula Weight: 90.1 kg Body Mass Index (BMI) 28.5 Intake & Output: Intake and Output for Last 24 Hours 10/26/20 10/27/20 10/28/20 23:59 23:59 23:59 Intake Total 600 / 600 350 / 350 730 / 730 Output Total 575 / 575 200 / 200 200 / 200 Balance 25 / 25 150 / 150 530 / 530 Lab / Micro Data Result Diagrams: 10/27/20 06:45 10/27/20 06:45 Micro: Microbiology 10/26/20 05:47 Nasal Secretion SARS-CoV-2 Antigen (Rapid) - Final SARS-CoV-2 (COVID 19) Physical Exam Const alert, oriented x3, no apparent distress and healthy appearing General Appearance: cooperative, well kempt and well developed Orientation / Consciousness: awake, oriented to person, oriented to place and oriented to time HEENT normocephalic and moist oral mucous membranes Eyes PERRL, EOMs intact bilaterally and conjunctivae normal Neck nuchal rigidity, supple, no JVD, thyroid normal and no carotid bruits General: trachea midline Resp normal respiratory effort, no retractions, no use of accessory muscles and clear to auscultation bilaterally Auscultation: Negative for rales, rhonchi or wheezes Cardio regular rate, regular rhythm, S1 normal heart sound, S2 normal heart sound, no murmurs, no rub and no gallops GI normal to inspection, nondistended, normoactive bowel sounds, soft to palpation, non-tender and non-distended Extremity no clubbing, cyanosis or edema Skin no rashes or lesions noted General Skin Exam: no breakdown Neuro oriented x3, CN's II-XII intact bilaterally, no focal motor deficits and no sensory deficits noted Sensorium / Orientation: awake and alert Speech: speech normal Psych thought process normal and affect normal Assessment & Plan Assessment/Plan (1) Pneumonia due to 2019-nCoV: PLAN: 1. COVID-19 pneumonia-patient is on remdesivir and dexamethasone- day 3 #2 acute hypoxic respiratory failure secondary to #1, wean oxygen as tolerated #3 hyperlipidemia-patient is on simvastatin Charges/Coding Visit Charges Inpatient E&M: 28412 Subs Hosp L2
--- NOTE | 2020-10-28 19:12 | PCS.PANDOC ---
PANDEMIC DOCUMENTATION INITIATED: Date: 09/20/2020 Time: 190
[2020-10-28] MEDS: Acetaminophen 500 MG Tablet 1000 MG PO (20:59)
[2020-10-29] VITALS (10 sets, daily range): BP systolic 125–158; BP diastolic 65–80; PULSE 59–76; RESP 12–20; TEMP 36.4–36.8; O2SAT 84–95
[2020-10-29] MEDS: Albuterol 2.5 MG/3 ML VIAL.NEB. INHALATION ×3 (07:11→20:03)
[2020-10-29] MEDS: Enoxaparin 40 MG/0.4 ML Syringe SC (09:57)
[2020-10-29] MEDS: 0.9% Saline Lock 10 ML Syringe IV (09:58)
[2020-10-29] MEDS: dexAMETHasone 4 MG Tablet 6 MG PO (09:58)
[2020-10-29] MEDS: LORazepam 0.5 MG Tablet 0.25 MG PO ×2 (10:09→20:26)
--- NOTE | 2020-10-29 18:31 | PN.HOSP_ITS ---
Subjective Subjective Patient was seen and examined today, I ambulated the patient without oxygen and his pulse ox went down to 83 today. At rest, the patient's pulse ox is 93. Patient does not complain of any shortness of breath at rest. Objective Data Objective Data Vital Signs: Vital Signs Temp Pulse Resp BP Pulse Ox 97.5 F L 74 18 125/66 H 95 10/29/20 15:05 10/29/20 15:05 10/29/20 15:05 10/29/20 15:05 10/29/20 15:05 Oxygen Flow Rate (L/min) 2 Oxygen Delivery Method Nasal Cannula Weight: 90.1 kg Body Mass Index (BMI) 28.5 Intake & Output: Intake and Output for Last 24 Hours 10/27/20 10/28/20 10/29/20 23:59 23:59 23:59 Intake Total 350 / 350 1030 / 1030 490 / 490 Output Total 200 / 200 200 / 200 Balance 150 / 150 830 / 830 490 / 490 Lab / Micro Data Result Diagrams: 10/27/20 06:45 10/27/20 06:45 Micro: Microbiology 10/26/20 05:47 Nasal Secretion SARS-CoV-2 Antigen (Rapid) - Final SARS-CoV-2 (COVID 19) Physical Exam Const alert, oriented x3, no apparent distress and healthy appearing General Appearance: cooperative, well kempt and well developed Orientation / Consciousness: awake, oriented to person, oriented to place and oriented to time HEENT normocephalic and moist oral mucous membranes Eyes PERRL, EOMs intact bilaterally and conjunctivae normal Neck nuchal rigidity, supple, no JVD, thyroid normal and no carotid bruits General: trachea midline Resp normal respiratory effort and clear to auscultation bilaterally Auscultation: Negative for rales, rhonchi or wheezes Cardio regular rate, regular rhythm, no murmurs, no rub and no gallops GI normal to inspection, nondistended, normoactive bowel sounds, soft to palpation, non-tender and non-distended Extremity no clubbing, cyanosis or edema Skin no rashes or lesions noted General Skin Exam: no breakdown Neuro oriented x3, CN's II-XII intact bilaterally, no focal motor deficits and no sensory deficits noted Sensorium / Orientation: awake and alert Speech: speech normal Psych thought process normal and affect normal Assessment & Plan Assessment/Plan (1) Pneumonia due to 2019-nCoV: PLAN: 1. COVID-19 pneumonia-patient is on remdesivir and dexamethasone- day 4 #2 acute hypoxic respiratory failure secondary to #1, wean oxygen as tolerated #3 hyperlipidemia-patient is on simvastatin Charges/Coding Visit Charges Inpatient E&M: 83468 Subs Hosp L2
[2020-10-29] MEDS: Acetaminophen 500 MG Tablet 1000 MG PO (20:22)
[2020-10-29] MEDS: Calcium Carbonate 500 MG Tablet 1000 MG PO (20:22)
[2020-10-30 02:29] VITALS: BP 143/74; PULSE 61; RESP 20; TEMP 36.5; O2SAT 95
[2020-10-30] MEDS: Calcium Carbonate 500 MG Tablet 1000 MG PO ×3 (02:33→16:38)
[2020-10-30] MEDS: Albuterol 2.5 MG/3 ML VIAL.NEB. INHALATION ×2 (07:19→13:35)
[2020-10-30 07:20] VITALS: PULSE 67; RESP 20; O2SAT 95
[2020-10-30] MEDS: 0.9% Saline Lock 10 ML Syringe IV (09:35)
[2020-10-30] MEDS: LORazepam 0.5 MG Tablet 0.25 MG PO (09:39)
[2020-10-30] MEDS: Enoxaparin 40 MG/0.4 ML Syringe SC (09:39)
[2020-10-30] MEDS: dexAMETHasone 4 MG Tablet 6 MG PO (09:40)
[2020-10-30] MEDS: Atorvastatin Calcium 10 MG Tablet PO (09:41)
[2020-10-30 09:50] VITALS: BP 155/67; PULSE 86; RESP 18; TEMP 36.2; O2SAT 95
--- NOTE | 2020-10-30 12:35 | PCM.DC ---
Discharge Instructions Diet Discharge Diet: No restrictions Activity Discharge Activity: Return to Normal Activity Weight Bearing Status: Full weight bearing Follow Up Care Test Results: Test results from this visit will be discussed in further detail at your follow-up appointment, if applicable. Discharge Plan Admission Admit Date/Time: 10/26/20 11:18 Primary Reason for Your Visit: COVID-19 pneumonia Attending Provider: Joes Pantoja Primary Care Provider: Jose Beaver Discharge Orders/Prescriptions Prescriptions: New lorazepam 0.5 mg Tablet 0.25 mg PO Q6H PRN PRN (Reason: Anxiety) Qty: 15 RF: 0 dexamethasone 4 mg Tablet 6 mg PO DAILY Qty: 9 RF: 0 Continued simvastatin 20 MG tablet 20 mg PO QODAY RF: 0 Advil PM 200-38 mg Tablet 1 cap PO QHS RF: 0 acetaminophen 500 mg Tablet 1,000 mg PO Q6H PRN (Reason: general pain) RF: 0 Referrals / Follow Up: Jose Beaver DO [Primary Care Provider] - Disposition Disposition (needs filled in before D/C Order can be placed): Home, Self Care
[2020-10-30 13:00] VITALS: O2SAT 85; O2SAT 90; O2SAT 91
[2020-10-30 13:35] VITALS: PULSE 67; RESP 18
[2020-10-30 15:00] VITALS: BP 140/65; PULSE 75; RESP 18; TEMP 36.6; O2SAT 95
--- NOTE | 2020-10-30 18:17 | PCM.DC.SUM ---
Providers Date of Admission: 10/26/20 Date of Discharge: 10/30/20 Primary Care Physician: Dr. Jose Beaver DO Reason For Visit: COVID 19 PNEUMONIA Diagnosis Discharge Diagnosis (1) Pneumonia due to 2019-nCoV: Status: Acute Code(s): U07.1 - COVID-19; J12.82 - Pneumonia due to coronavirus disease 2019 Plan: 1. COVID-19 pneumonia #2 acute hypoxemic respiratory failure secondary to Covid 19 pneumonia #3 hyperlipidemia #4 anxiety Medications at Discharge Home Medications simvastatin 20 mg PO QODAY 07/24/13 Advil PM 1 cap PO QHS 10/26/20 acetaminophen 1,000 mg PO Q6H PRN 10/26/20 dexamethasone 6 mg PO DAILY #9 tab 10/30/20 lorazepam 0.25 mg PO Q6H PRN PRN #15 tab 10/30/20 Hospital Course Operations None Procedures None Summary of Care Provided Minutes Spent on Discharge: 30 Hospital Course: This 85-year-old white male was seen in the emergency room at [facility] with chief complaint of shortness of breath, he complained of the shortness of breath chiefly on activity, his daughter checked his pulse ox at home and it was dropping into the 80s and he was brought in for evaluation to the emergency room. Patient had the Moderna vaccine and was fully vaccinated against COVID-19. Work-up in the emergency room included a chest x-ray which showed evidence of bilateral infiltrates concerning for Covid 19 infection, his COVID-19 antigen was positive. CTA of the chest was done and there was no evidence of pulmonary embolus. Patient dropped to 88% on room air sitting in the bed in the emergency room. Patient was admitted to [place] [address] for COVID-19 pneumonia and acute hypoxemic respiratory failure, was given dexamethasone and remdesivir, patient finishes entire 5-day course of remdesivir. On 10/30/2020, patient was seen and examined: On examination he appeared in good health and spirits. Vital signs as documented. Skin warm and dry and without overt rashes. Neck without JVD, neck was supple, trachea midline, thyroid was normal. Lungs-patient had scattered inspiratory rales bilaterally, normal air movement was noted. Heart exam notable for regular rhythm, normal sounds and absence of murmurs, rubs or gallops. Abdomen unremarkable and without evidence of organomegaly, masses, or abdominal aortic enlargement. Bowel sounds are present, abdomen is not distended. Extremities nonedematous, no cyanosis was noted, no clubbing was noted. Neuro: Cranial nerves II through XII are grossly intact, no focal motor deficits were noted, sensation to light touch and pinprick intact, motor exam 5/5 throughout. Psych: Patient is alert and oriented x3, he does not appear anxious or depressed, he does not appear agitated. At the time of discharge on 10/30/2020, patient did not require oxygen at rest but did require supplemental oxygen at 2 L/min on ambulation. He is expected to wear oxygen inside the home and outside the home on ambulation. Patient appears stable for discharge on 10/30/2020. Weight / BMI Weight Weight: 90.1 kg Body Mass Index (BMI) 28.5 ABG / Lab / Microbiology Data Result Diagrams: 10/27/20 06:45 10/27/20 06:45 Microbiology: Microbiology 10/26/20 05:47 Nasal Secretion SARS-CoV-2 Antigen (Rapid) - Final SARS-CoV-2 (COVID 19) D/C Instructions Discharge Diet: No restrictions Weight Bearing Status: Full weight bearing Meaningful Use Info Meaningful Use Diagnoses (Choose all that apply): None applicable Discharge Plan Admission Admit Date/Time: 10/26/20 11:18 Primary Reason for Your Visit: COVID-19 pneumonia Attending Provider: Jose Pantoja Primary Care Provider: Jose Beaver Discharge Orders/Prescriptions Prescriptions: New lorazepam 0.5 mg Tablet 0.25 mg PO Q6H PRN PRN (Reason: Anxiety) Qty: 15 RF: 0 dexamethasone 4 mg Tablet 6 mg PO DAILY Qty: 9 RF: 0 Continued simvastatin 20 MG tablet 20 mg PO QODAY RF: 0 Advil PM 200-38 mg Tablet 1 cap PO QHS RF: 0 acetaminophen 500 mg Tablet 1,000 mg PO Q6H PRN (Reason: general pain) RF: 0 Referrals / Follow Up: Jose Beaver DO [Primary Care Provider] - Disposition Disposition (needs filled in before D/C Order can be placed): Home, Self Care Charges/Coding Visit Charges Inpatient E&M: 70386 Disch Hosp
--- NOTE | 2020-11-01 13:51 | CASEMGMT ---
AVINASH HAUSER Discharge Follow-up Phone Call: JEAN-PAUL: Denis Strata: 2 Call Date: 11/01/20 Discharge Date: 10/30/20 Time of Call: 1545 Duration: 5 min Admitting Diagnosis: Covid AVINASH HAUSER completed follow-up phone call after recent hospitalization. Patient was resting, Parisa answered phone. states patient is doing well. Patient's home oxygen was delivered and patient is wearing and checking SPO2. Patient was able to fill prescriptions without any difficulty. aware to scheduled follow-up appt with PCP. AVINASH HAUSER clarified when patient should quarantine till, voiced understanding. had no further questions or concerns at this time.
== END 2020-10-30 17:30 | disposition home or self-care (01) | DRG 177 ==
LOC: ED 08:13 → MS3 11:24 → PCU 13:01 → MS3 14:56
PROVIDERS: Admitting Provider Internal Medicine; Emergency Provider Emergency Medicine; PCP Family Medicine; Visit Provider Internal Medicine
DX: U07.1 COVID-19 (principal); J12.82 Pneumonia due to coronavirus disease 2019; J96.01 Acute respiratory failure with hypoxia; E78.5 Hyperlipidemia, unspecified; F41.1 Generalized anxiety disorder; Z87.891 Personal history of nicotine dependence; Z79.899 Other long term (current) drug therapy; Z23 Encounter for immunization
CPT/HCPCS: 36415; 71045; 71275; 80048; 80053; 80076; 83880; 84484; 85025; 85027; 87426; 93005; 94640; 94762; 97161; 97166; 97535; 99251; 99285; G0008; J7050; Q9967; 90686; A4216; G0463

== ENCOUNTER → 2021-01-18 08:39 | Outpatient (CLI) | payer MEDICARE, SELFPAY ==
--- NOTE | 2021-01-18 09:02 | RAD_ITS ---
STUDY: X-RAY CHEST REASON FOR EXAM: Male, 85 years old. FOLLOW UP EXAM, S/P COVID TECHNIQUE: PA and lateral views of the chest. COMPARISON: 10/26/2020 FINDINGS: Decrease in alveolar opacities in both lungs consistent with improving bilateral pneumonia. There is no demonstrated pleural abnormality. Normal size heart. Normal mediastinum and cheyanne. Normal visualized pulmonary arteries. Normal visualized aortic arch and descending thoracic aorta. Normal visualized thoracic spine. Normal visualized ribs, clavicles, and shoulders. There is no demonstrated abnormality of the visualized soft tissue structures of the upper abdomen. RAD/Chest PA and Lateral IMPRESSION: Improved bilateral pneumonia. Electronically Signed: Blake Cantrell MD at 16:50 EST Tel , Service support ,
== END ==
PROVIDERS: PCP Family Medicine; Referring Provider Family Medicine; Visit Provider Family Medicine
DX: Z87.01 Personal history of pneumonia (recurrent) (principal); Z86.16 Personal history of COVID-19; Z92.29 Personal history of other drug therapy
CPT/HCPCS: 36415; 71046

== ENCOUNTER 2021-09-24 19:48 | Day surgery (SDC) | payer MEDICARE, SELFPAY ==
[2021-09-24] VITALS (10 sets, daily range): BP systolic 129–144; BP diastolic 70–91; PULSE 61–96; RESP 16–18; TEMP 36–36.6; O2SAT 92–99; BMI 27.5
--- NOTE | 2021-09-24 19:59 | ED.RN ---
patient drinking coke at this time without effect
--- NOTE | 2021-09-24 20:05 | EDS_ITS ---
HPI HPI - GI History of Present Illness Chief Complaint: Foreign Body Detail of Chief Complaint: Esophageal food bolus Informant: patient and spouse/S.O. Abdominal Pain/Flank Pain Onset: Today Context: Gradual Onset Timing: Continuous Current Severity: Mild Maximum Severity: Mild Nausea/Vomiting/Emesis GI Symptom: Positive for Vomiting; Negative for Nausea Diarrhea/Melena/Hematochezia GI Symptom: Negative for Diarrhea, Melena or Hematochezia Associated Symptoms Associated Symptoms: Negative for Dysuria, Frequency, Hematuria or Urgency Narrative Narrative: 86-year-old male no seen past medical history according to he and his . States he has been having more difficulty swallowing lately has never had an upper endoscopy that he can remember. Tonight he ate chicken around 6 PM and it is now stuck and is unable to swallow. He denies any trouble breathing. He has never had this happen before that he can remember. Prior similar symptoms: No Recent Illness/Hospitalization: No PFSH PFSH Medical History High cholesterol Home Medications simvastatin 20 mg tablet 20 mg PO QODAY Arthurites pain 07/24/13 [History Last Taken 10/25/20] acetaminophen 500 mg tablet 1,000 mg PO Q6H PRN general pain 10/26/20 [History Last Taken Unknown] ibuprofen-diphenhydramine citrate 200 mg-38 mg tablet (Advil PM) 1 cap PO QHS 10/26/20 [History Last Taken Unknown] dexamethasone 4 mg tablet 6 mg PO DAILY #9 tabs 10/30/20 [Rx Last Taken Unknown] lorazepam 0.5 mg tablet 0.25 mg PO Q6H PRN PRN Anxiety #15 tabs 10/30/20 [Rx Last Taken Unknown] Allergy/AdvReac Type Severity Reaction Status Date / Time No Known Allergies Allergy Verified 09/24/21 19:49 Surgical History H/O arthroscopic knee surgery Social History Smoking Status: Former smoker ROS ROS ED ROS Narrative No recent illness. Review of Systems ROS Unobtainable: Denies due to encephalopathy Constitutional Constitutional ED: Denies chills or fever(s) ENT ENT ED: Denies ear pain Cardiovascular Cardiovascular: Denies chest pain Respiratory/Chest Respiratory/Chest: Denies cough or dyspnea Gastrointestinal Gastrointestinal: Reports vomiting; Denies abdominal pain, constipation, diarrhea, melena or nausea Genitourinary Genitourinary ED: Denies dysuria or hematuria Musculoskeletal Musculoskeletal: Denies arthralgias Integumentary Denies abscess Neurologic Neurologic: Denies headache(s) Psychiatric Psychiatric: Denies anxiety Endocrine Endocrinology: Denies polydipsia Hematologic/Lymphatic Hematologic/Lymphatic: Denies easy bleeding Allergic/Immunologic Allergic/Immunologic ED: Denies mouth swelling EXAM Physical Exam Narrative Exam Narrative: 86-year-old male no acute distress vital signs stable afebrile. Pulse ox 90% on room air no signs hypoxia. No respiratory distress. H EENT exam unremarkable. Neck nontender. Lungs clear to auscultation. Heart regular rhythm rate about 60 no murmur. Abdomen soft nontender normal bowel sounds no peritoneal signs. Moving all 4 extremities. He is awake and alert. Const Vital Signs: 09/24/21 19:49 09/24/21 20:00 Temperature 97.9 F Temperature Source Temporal Pulse Rate 61 Respiratory Rate 16 Respiratory Effort Normal Respiratory Pattern Normal Blood Pressure 144/74 H Blood Pressure Mean 97 Pulse Ox 98 Oxygen Delivery Method Room Air Positive well nourished and well developed; Negative for obese, cachectic, contractures or unkempt General Appearance ED: well developed and NAD; Negative for unkempt, cachectic, contractures or pallor Nutritional Appearance: Negative for cachectic or obese HEENT Reports moist mucous membranes normocephalic and atraumatic; Negative for trauma or tenderness Eyes PERRL and EOMs intact bilaterally General Eye ED: Negative for pale conjunctiva or scleral icterus Neck no lymphadenopathy, supple and no JVD General: Negative for tenderness Carotids: Negative for other Resp normal respiratory effort and clear to auscultation bilaterally Effort and Inspection: Negative for respiratory distress or retractions Auscultation: Negative for rales, rhonchi or wheezes Cardio regular rate, regular rhythm, S1 normal heart sound, S2 normal heart sound and no murmurs Rate: Negative for bradycardia or tachycardic Rhythm: Negative for abnormal rhythm GI non-tender, non-distended and no masses Inspection: Negative for abdominal distention Auscultation: normoactive bowel sounds; Negative for hyperactive bowel sounds or hypoactive bowel sounds Palpation: soft; Negative for tender, guarding, rigid, hernia, mass, pulsatile mass or rebound tenderness present Extremity full ROM General Extremety ED: Negative for edema or tenderness General Extremity: Negative for edema Neuro CN's II-XII intact bilaterally and moves all extremities Sensorium / Orientation: alert, oriented to person, oriented to place and oriented to time; Negative for orientation impaired, confused, lethargic or stuporous Motor Exam: strength 5/5 throughout Psych mental status grossly normal and thought process normal Appearance: Negative for unkempt Attitude: No agitated Skin no wounds General Skin Exam: Negative for jaundice or pallor Lesions: no lesions MDM MDM MDM Narrative Medical decision making narrative: 86-year-old male with suspected chicken food bolus stuck in his esophagus. IV will be placed. I will speak to Dr. Barber on-call for GI to see if he is available to come and scope the patient to resolve an esophageal food bolus. I talked to Dr. Barber of GI help take the patient to endoscopy I will notify ENL OFFSET ASSISTANT PRESS OPERATOR will be needed for conscious sedation. Discharge Plan Triage Chief Complaint: Foreign Body ED Provider: Jim Garcia Dx/Rx/DC Orders Clinical Impression: Acute esophageal obstruction Prescriptions: No Action simvastatin 20 MG tablet 20 mg PO QODAY Advil PM 200-38 mg Tablet 1 cap PO QHS acetaminophen 500 mg Tablet 1,000 mg PO Q6H PRN (Reason: general pain) lorazepam 0.5 mg Tablet 0.25 mg PO Q6H PRN PRN (Reason: Anxiety) Qty: 15 0RF dexamethasone 4 mg Tablet 6 mg PO DAILY Qty: 9 0RF Rx Instructions: 1 1/2 tabs daily starting 10/31/20 Primary Care Provider: Jose Beaver Referrals: Jose Beaver DO [Primary Care Provider] - Disposition Disposition: Home, Self Care
[2021-09-24] MEDS: LORazepam 2 MG/ML Syringe 0.5 MG IV (20:22)
--- NOTE | 2021-09-24 21:02 | PCM.HP.STD ---
HPI - General General Date of Admission: 09/24/21 Date of Service: 09/24/21 Chief Complaint: foreign body HPI Narrative SAEID CHAMORRO, is a 86 M who presents to the ED after swallowing chicken and getting stuck in his throat. He is in no respiratory distress. No acute distress vital signs stable afebrile.? Pulse ox 90% on room air no signs hypoxia.? No respiratory distress.? H EENT exam unremarkable.? Neck nontender.? Lungs clear to auscultation.? Heart regular rhythm rate about 60 no murmur.? Abdomen soft nontender normal bowel sounds no peritoneal signs.? Moving all 4 extremities.? He is awake and alert. He was given Ativan in the ED. He does not take any blood thinners. [facility] Medical History High cholesterol Home Medications simvastatin 20 mg tablet 20 mg PO QODAY Arthurites pain 07/24/13 [History Last Taken 10/25/20] acetaminophen 500 mg tablet 1,000 mg PO Q6H PRN general pain 10/26/20 [History Last Taken Unknown] ibuprofen-diphenhydramine citrate 200 mg-38 mg tablet (Advil PM) 1 cap PO QHS 10/26/20 [History Last Taken Unknown] dexamethasone 4 mg tablet 6 mg PO DAILY #9 tabs 10/30/20 [Rx Last Taken Unknown] lorazepam 0.5 mg tablet 0.25 mg PO Q6H PRN PRN Anxiety #15 tabs 10/30/20 [Rx Last Taken Unknown] Allergy/AdvReac Type Severity Reaction Status Date / Time No Known Allergies Allergy Verified 09/24/21 19:49 Surgical History H/O arthroscopic knee surgery Social History Smoking Status: Former smoker ROS Constitutional Constitutional: Reports fatigue; Denies anorexia, change in weight, fever(s), night sweats or weakness Eyes Eyes: Denies blurry vision, change in vision, discharge from eye(s) or eye pain ENT HEENT: Denies abnormal hearing Cardiovascular Cardiovascular: Reports dyspnea on exertion; Denies chest pain, claudication, edema or palpitations Respiratory/Chest Respiratory/Chest: Reports cough, dyspnea and shortness of breath with exertion; Denies hemoptysis or shortness of breath at rest Gastrointestinal Gastrointestinal: Reports dysphagia; Denies abdominal pain, coffee ground emesis, constipation, diarrhea, hematemesis, hematochezia, melena, nausea or vomiting Genitourinary Genitourinary: Denies dysuria, hematuria, urinary frequency, urinary hesitancy, urinary incontinence or urinary urgency Musculoskeletal Musculoskeletal: Denies back pain, joint pain, joint stiffness, joint swelling, myalgias or neck pain Neurologic Neurologic: Denies abnormal gait, abnormal speech, dizziness, focal weakness, headache(s), loss of vision, numbness, other visual disturbances, paresthesias, syncope or tingling Psychiatric Psychiatric: Denies anxiety, cognitive impairment, depression, irritability, mood swings or suicidal ideation Endocrine Endocrinology: Denies change in body appearance, cold intolerance, excessive sweating, heat intolerance, polydipsia or polyuria Hematologic/Lymphatic Hematologic/Lymphatic: Denies none, anemia, easy bleeding, easy bruising or lymphadenopathy Allergic/Immunologic Allergic/Immunologic: Denies rhinitis, urticaria, eczemia or asthma Vital Signs Vital Signs Vital Signs: 09/24/21 19:49 09/24/21 20:00 09/24/21 20:53 Temperature 97.9 F 97.9 F Temperature Source Temporal Temporal Pulse Rate 61 70 Respiratory Rate 16 16 Respiratory Effort Normal Respiratory Pattern Normal Blood Pressure 144/74 H 144/74 H Blood Pressure Mean 97 97 Pulse Ox 98 99 Oxygen Delivery Method Room Air Room Air Weight Weight: 192 lb Body Mass Index (BMI) 27.5 Physical Exam Const alert, oriented x3, no apparent distress and healthy appearing General Appearance: cooperative, well kempt and well developed Orientation / Consciousness: awake, oriented to person, oriented to place and oriented to time HEENT normocephalic and moist oral mucous membranes Eyes PERRL, EOMs intact bilaterally and conjunctivae normal Neck nuchal rigidity, supple, no JVD, thyroid normal and no carotid bruits General: trachea midline Resp normal respiratory effort and clear to auscultation bilaterally Auscultation: Negative for rales, rhonchi or wheezes Cardio regular rate, regular rhythm, no murmurs, no rub and no gallops GI normal to inspection, nondistended, normoactive bowel sounds, soft to palpation, non-tender and non-distended Extremity no clubbing, cyanosis or edema Skin no rashes or lesions noted General Skin Exam: no breakdown Neuro oriented x3, CN's II-XII intact bilaterally, no focal motor deficits and no sensory deficits noted Sensorium / Orientation: awake and alert Speech: speech normal Psych thought process normal and affect normal Assessment & Plan Assessment/Plan (1) Acute esophageal obstruction: PLAN: He will undergo EGD with foreign body removal and possible biopsy with possible dilation. He was explained alternatives, risk, benefits include not withstanding bleeding, infection, sepsis peripheral, need for emergent turn to . He will have an ASA of 3.
--- NOTE | 2021-09-24 21:59 | OP.EGD_ITS ---
Patient Name: Paul Vega Procedure Date: 09/24/2021 8:56 PM Date of : 1935 Age: 86 Procedure: Upper GI endoscopy Indications: Foreign body in the esophagus Providers: Mohit Barber DO Medicines: Monitored Anesthesia Care Patient Profile: This is an 86 year old male. Refer to note in patient chart for documentation of history and physical. Patient has symptoms of acute dysphagia. Complications: No immediate complications. Procedure: Pre-Anesthesia Assessment: - Prior to the procedure, a History and Physical was performed, and patient medications and allergies were reviewed. The risks and benefits of the procedure and the sedation options and risks were discussed with the patient. All questions were answered and informed consent was obtained. Patient identification and proposed procedure were verified by the physician in the pre-procedure area. Mental Status Examination: alert and oriented. Airway Examination: normal oropharyngeal airway and neck mobility. Respiratory Examination: clear to auscultation. CV Examination: normal. Prophylactic Antibiotics: The patient does not require prophylactic antibiotics. Prior Anticoagulants: The patient has taken no previous anticoagulant or antiplatelet agents. After reviewing the risks and benefits, the patient was deemed in satisfactory condition to undergo the procedure. The anesthesia plan was to use moderate sedation / analgesia (conscious sedation). Immediately prior to administration of medications, the patient was re-assessed for adequacy to receive sedatives. The heart rate, respiratory rate, oxygen saturations, blood pressure, adequacy of pulmonary ventilation, and response to care were monitored throughout the procedure. The physical status of the patient was re-assessed after the procedure. After obtaining informed consent, the endoscope was passed under direct vision. Throughout the procedure, the patient's blood pressure, pulse, and oxygen saturations were monitored continuously. The gastroscope was introduced through the mouth, and advanced to the second part of duodenum. The upper GI endoscopy was accomplished without difficulty. The patient tolerated the procedure well. Scope In: 9:23:09 PM Scope Out: 9:51:21 PM Total Procedure Duration Time 0 hours 28 minutes 12 seconds Findings: Food was found in the entire esophagus. Removal of food was accomplished. Verification of patient identification for the specimen was done. Estimated blood loss was minimal. A severe Schatzki ring was found in the lower third of the esophagus. A TTS dilator was passed through the scope. Dilation with an 18-19-20 mm balloon dilator was performed to 16 mm. The dilation site was examined following endoscope reinsertion and showed complete resolution of luminal narrowing. Estimated blood loss was minimal. A medium-sized hiatal hernia was present. A large amount of food (residue) was found in the entire examined stomach. No gross lesions were noted in the duodenal bulb. Impression: - Food in the esophagus. Removal was successful. - Severe Schatzki ring. Dilated. - Medium-sized hiatal hernia. - A large amount of food (residue) in the stomach. - No gross lesions in the duodenal bulb. Recommendation: - Discharge patient to home. - Resume previous diet. - Use Protonix (pantoprazole) 40 mg PO BID for 8 weeks. - Continue present medications. - No aspirin, ibuprofen, naproxen, or other non-steroidal anti-inflammatory drugs for 7 days. Procedure Code(s): --- Professional --- 46170, Esophagogastroduodenoscopy, flexible, transoral; with removal of foreign body(s) 79216, Esophagogastroduodenoscopy, flexible, transoral; with transendoscopic balloon dilation of esophagus (less than 30 mm diameter) CPT copyright 2017 [employer]. All rights reserved. The codes documented in this report are preliminary and upon electronic publications specialist review may be revised to meet current compliance requirements. Mohit Barber DO 09/24/2021 9:58:48 PM This report has been signed electronically. Number of Addenda: 1 Note Initiated On: 09/24/2021 8:56 PM Addendum Number: 1 Addendum Date: 11/10/2021 6:11:17 AM MAC was used as sedation for this procedure. Mohit Barber DO 11/10/2021 6:11:21 AM This report has been signed electronically.
--- NOTE | 2021-09-24 22:00 | OP.CCLET_ITS ---
11/10/2021 Jose Beaver [address] [facility] [place] [address] Re : Upper GI endoscopy procedure for Paul Aliceafranck Dear Dr. Beaver This procedure was performed on Friday, September 24, 2021. My impressions and recommendations are as follows: Impressions : - Food in the esophagus. Removal was successful. - Severe Schatzki ring. Dilated. - Medium-sized hiatal hernia. - A large amount of food (residue) in the stomach. - No gross lesions in the duodenal bulb. Recommendations : - Discharge patient to home. - Resume previous diet. - Use Protonix (pantoprazole) 40 mg PO BID for 8 weeks. - Continue present medications. - No aspirin, ibuprofen, naproxen, or other non-steroidal anti-inflammatory drugs for 7 days. My findings are described in the full procedure note, which is enclosed. If I can be of further assistance, please feel free to contact me at . Sincerely, Mohit Barber, 09/24/2021 9:58:48 PM This report has been signed electronically.
--- NOTE | 2021-09-24 22:27 | EKG12_ITS ---
Test Reason : POST OP Blood Pressure : / mmHG Vent. Rate : 079 BPM Atrial Rate : 079 BPM P-R Int : 210 ms QRS Dur : 092 ms QT Int : 404 ms P-R-T Axes : 055 027 019 degrees QTc Int : 463 ms Sinus rhythm with 1st degree A-V block with Premature supraventricular complexes Incomplete right bundle branch block Confirmed by FILIBERTO FOX, ANITA ([id number]), multimedia editor KORI UMANZOR ([id number]) on 09/27/2021 1:17:04 PM Referred By: Confirmed By:ANITA DE LOS SANTOS MD
--- NOTE | 2021-09-24 22:36 | SUR.PHASEI ---
RT here in pacu doing ekg- labs drawn and sent to lab family at bedside
[2021-09-24 22:52] LABS: Anion Gap 3 (5-15); BUN 26 mg/dL (7-18); BUN/Creat Ratio 20.8 RATIO (10-20); Calcium,Total 9.2 mg/dL (8.5-10.1); Chloride 112 mmol/L (98-107); Creatinine, Serum 1.25 mg/dL (0.70-1.30); EST Glomerular Filtration Rate 58 mL/min (>60); Est Glom Filt Rate - Afr Amer 71 mL/min (>60); Estimated Creatinine Clearance 44.61 ml/min; Glucose 122 mg/dL (74-106); Magnesium 2.1 mg/dL (1.6-2.6); Phosphorus 2.5 mg/dL (2.5-4.9); Potassium 4.4 mmol/L (3.5-5.1); Sodium Level 144 mmol/L (136-145)
== END 2021-09-24 23:07 | disposition home or self-care (01) ==
LOC: ED 20:26 → EN 20:34 → AC 20:35
PROVIDERS: Anesthesiology; Emergency Provider Emergency Medicine; PCP Family Medicine; Referring Provider Family Medicine; Visit Provider Internal Medicine Gastroenterology
PROC: 0DJ08ZZ Inspection of Upper Intestinal Tract, Via Natural or Artificial Opening Endoscopic (ICD-10-PCS; CPT 43235; principal; 2021-09-24 21:00)
DX: K22.2 Esophageal obstruction (principal); K44.9 Diaphragmatic hernia without obstruction or gangrene; E78.00 Pure hypercholesterolemia, unspecified; Z79.899 Other long term (current) drug therapy; Z87.891 Personal history of nicotine dependence
CPT/HCPCS: 43249; 43247; 80048; 83735; 84100; 93005; 99284; J7040; A4216; J2405; J3490

== ENCOUNTER → 2021-12-15 | Outpatient (CLI) | payer MEDICARE, SELFPAY ==
[2021-12-15 18:12] LABS: Absolute Neutrophil Count 6.1 X10^3/uL (2.0-7.7); Basophil# 0.02 X10^3/uL; Basophil% 0.2 % (0-1); Eosinophil# 0.05 X10^3/uL; Eosinophils% 0.5 % (0-5); Hematocrit 46.7 % (40-54); Hemoglobin 14.8 g/dL (13.0-16.5); Mean Corp Hgb Conc 31.7 g/dL (32-36); Mean Corpuscular Hgb 31.4 pg (27.0-32.0); Mean Corpuscular Volume 99.2 fL (80-94); Mean Platelet Vol. 10.5 fl (6.2-12.0); Monocyte# 1.15 X10^3/uL; NRBC Flagged by Analyzer 0 % (0-5); Neutrophil # 6.11 X10^3/uL (2.7-7.7); Neutrophil % 63.9 % (47-70); Platelet Count 153 K/mm3 (150-450); RBC Distribution Width CV 12.7 % (11.6-14.6); RBC Distribution Width SD 45.9 fl (35.1-43.9); Red Blood Count 4.71 M/mm3 (4.6-6.2); White Blood Count 9.6 K/mm3 (4.4-11.0)
[2021-12-15 18:49] LABS: Cholesterol 153 mg/dL (200); High Density Lipoprotein 56 mg/dL; PSA,Total - Annual Screen 1.14 ng/mL (0.00-4.00); Triglycerides 169 mg/dL; Very Low Density Lipoprotein 34 mg/dL (5-40)
== END | disposition home or self-care (01) ==
LOC: BFHLAB 14:38
PROVIDERS: PCP Family Medicine; Visit Provider Family Medicine
DX: D69.6 Thrombocytopenia, unspecified (principal); E78.5 Hyperlipidemia, unspecified; Z12.5 Encounter for screening for malignant neoplasm of prostate
CPT/HCPCS: 36415; 80061; 84153; 85025; G0103

== ENCOUNTER → 2022-03-15 | Outpatient (CLI) | payer MEDICARE, SELFPAY ==
--- NOTE | 2022-03-15 13:36 | EKG12_ITS ---
Test Reason : PRE OP Blood Pressure : / mmHG Vent. Rate : 066 BPM Atrial Rate : 066 BPM P-R Int : 164 ms QRS Dur : 088 ms QT Int : 384 ms P-R-T Axes : -05 011 062 degrees QTc Int : 402 ms Normal sinus rhythm Nonspecific T wave abnormality Abnormal ECG Confirmed by VELVET FOX, SALLY ([id number]), editorial director KORI UMANZOR ([id number]) on 03/16/2022 11:30:43 AM Referred By: Devan Grant Confirmed By:SALLY VERDIN MD
[2022-03-15 15:38] LABS: Hematocrit 44.8 % (40-54); Hemoglobin 14.3 g/dL (13.0-16.5); Mean Corp Hgb Conc 31.9 g/dL (32-36); Mean Corpuscular Hgb 32.1 pg (27.0-32.0); Mean Corpuscular Volume 100.7 fL (80-94); Mean Platelet Vol. 10.8 fl (6.2-12.0); Platelet Count 110 K/mm3 (150-450); RBC Distribution Width CV 12.6 % (11.6-14.6); RBC Distribution Width SD 46.9 fl (35.1-43.9); Red Blood Count 4.45 M/mm3 (4.6-6.2); White Blood Count 6.7 K/mm3 (4.4-11.0)
[2022-03-15 16:08] LABS: Anion Gap 4 (5-15); BUN 18 mg/dL (7-18); BUN/Creat Ratio 15.4 RATIO (10-20); Calcium,Total 9.4 mg/dL (8.5-10.1); Chloride 106 mmol/L (98-107); Creatinine, Serum 1.17 mg/dL (0.70-1.30); EST Glomerular Filtration Rate 63 mL/min (>60); Est Glom Filt Rate - Afr Amer 76 mL/min (>60); Glucose 94 mg/dL (74-106); Potassium 4.3 mmol/L (3.5-5.1); Sodium Level 141 mmol/L (136-145)
== END | disposition home or self-care (01) ==
PROVIDERS: PCP Family Medicine; Referring Provider Otolaryngology; Visit Provider Otolaryngology
DX: Z01.818 Encounter for other preprocedural examination (principal)
CPT/HCPCS: 36415; 80048; 85027; 93005

== ENCOUNTER 2022-03-17 18:16 | Emergency (ER) | payer MEDICARE, SELFPAY ==
[2022-03-17 18:17] VITALS: BP 125/113; PULSE 90; RESP 15; TEMP 36.7; O2SAT 99; BMI 27.2
--- NOTE | 2022-03-17 18:31 | EKG12_ITS ---
Test Reason : SOB Blood Pressure : / mmHG Vent. Rate : 085 BPM Atrial Rate : 085 BPM P-R Int : 182 ms QRS Dur : 082 ms QT Int : 354 ms P-R-T Axes : 015 017 062 degrees QTc Int : 421 ms Normal sinus rhythm Normal ECG Confirmed by VELVET FOX, SALLY ([id number]), offline editor KORI UMANZOR ([id number]) on 03/20/2022 12:43:17 PM Referred By: Confirmed By:SALLY VERDIN MD
--- NOTE | 2022-03-17 18:33 | EDS_ITS ---
HPI History of Present Illness Chief Complaint: Shortness of Breath Narrative Narrative: 86-year-old male who denies significant past medical history presents with his daughter because of 4 months of shortness of breath and dyspnea on exertion. He states that his symptoms have been getting worse over the last 3 weeks. Additionally, he states whenever he goes down to the basement and comes back up he is very winded. He denies any fevers, but states he was chilled today. He developed a sore throat over the last few days. He denies any swelling of his legs or chest pain. His daughter states that he has been generally weak and has fallen. He is not a smoker. [facility] and had a chest x-ray performed today, along with COVID and strep swabs. Those were negative. He presents because of the increasing shortness of breath and dyspnea on exertion. [facility] Medical History High cholesterol Home Medications simvastatin 20 mg tablet 20 mg PO QODAY Arthurites pain 07/24/13 [History Last Taken 10/25/20] acetaminophen 500 mg tablet 1,000 mg PO Q6H PRN general pain 10/26/20 [History Last Taken Unknown] ibuprofen-diphenhydramine citrate 200 mg-38 mg tablet (Advil PM) 1 cap PO QHS 10/26/20 [History Last Taken Unknown] dexamethasone 4 mg tablet 6 mg PO DAILY #9 tabs 10/30/20 [Rx Last Taken Unknown] lorazepam 0.5 mg tablet 0.25 mg PO Q6H PRN PRN Anxiety #15 tabs 10/30/20 [Rx Last Taken Unknown] pantoprazole 40 mg tablet,delayed release 40 mg PO BID #60 tabs 09/24/21 [Rx Last Taken Unknown] famotidine 20 mg tablet 20 mg PO DAILY #14 tabs 10/18/21 [Rx Last Taken Unknown] prednisone 20 mg tablet 20 mg PO DAILY #7 tabs 10/18/21 [Rx Last Taken Unknown] albuterol sulfate 90 mcg/actuation aerosol inhaler (Ventolin HFA) 1 - 2 puff inhalation Q4H PRN PRN Wheezing #1 ea 03/17/22 [Rx Last Taken Unknown] levofloxacin 750 mg tablet 750 mg PO DAILY #7 tabs 02/10/23 [Rx Last Taken Unkn own] Allergy/AdvReac Type Severity Reaction Status Date / Time No Known Allergies Allergy Verified 03/17/22 18:20 Surgical History H/O arthroscopic knee surgery Social History Smoking Status: Former smoker ROS ROS ED ROS Narrative Constitutional: No fever, positive chills. HEENT: No sore throat. No neck pain. No loss of vision. No rhinorrhea. Cardiovascular: No chest pain. No palpitations. No pedal edema. Respiratory: No cough, positive dyspnea on exertion and shortness of breath. Abdominal: No abdominal pain. No nausea. No vomiting. Genitourinary: No dysuria. No hematuria. Musculoskeletal: No myalgias. No arthralgias. Neurologic: No headaches. No dizziness. No lightheadedness. Generalized weakness. Skin: No rash. No change in color. Psychiatric: No depression. No anxiety. EXAM Physical Exam Narrative Exam Narrative: Afebrile. Vital signs noted. HEENT: Normocephalic. Atraumatic. PERRL, EOMI. Neck soft and supple. No point tenderness or step off. Cardiovascular: Regular rate and rhythm. No murmurs, rubs, or gallops appreciated. Respiratory: Positive tachypnea. Positive rales bilateral bases, right greater than left. Gastrointestinal: Abdomen soft, nontender, with normoactive bowel sounds. No rebound or guarding. Neurological: Awake. Alert. Nonfocal, nonlateralizing. Skin: No rash. Normal color. No pallor. Musculoskeletal: No pedal edema. Full range of motion extremities. Const Vital Signs: 03/17/22 18:17 03/17/22 18:26 03/17/22 18:55 Temperature 98.0 F Temperature Source Temporal Pulse Rate 90 83 Respiratory Rate 15 21 H Respiratory Effort Short of Breath Blood Pressure 125/113 H 108/65 Blood Pressure Mean 117 79 Pulse Ox 99 93 Oxygen Delivery Method Room Air Room Air 03/17/22 20:26 Temperature Temperature Source Pulse Rate 85 Respiratory Rate 33 H Respiratory Effort Blood Pressure Blood Pressure Mean Pulse Ox 97 Oxygen Delivery Method Room Air MDM MDM MDM Narrative Medical decision making narrative: Concern is for pneumonia versus CHF versus undiagnosed COPD. I reviewed his x- ray that he got as an outpatient today, and see increased interstitial markings. This is on my interpretation of his outpatient x-ray. I did review the radiology read which is also concerning for increased interstitial markings whether it be infectious or edema. Comprehensive work-up was pursued. I will obtain an EKG, troponin, BNP, and basic laboratory work to look for signs of new onset CHF. I will swab him for influenza. Pulse ox is currently 99% on room air without evidence of hypoxia. I reviewed the patient's laboratory work, he has a normal white count of 7.8, hemoglobin normal at 13.8 with hematocrit 42.3. Platelet count low at 92. In review of his laboratory work in the past, he has a chronic thrombocytopenia and has been as low as 67. CMP shows BUN slightly elevated 23 with creatinine 1.19. Glucose appropriately elevated at 117 with a normal anion gap of 8. Troponin, high-sensitivity is 17. His shortness of breath has been ongoing for weeks. BNP is also normal at 30.9. Urinalysis shows no evidence of infection. Given the review of his outpatient x-ray and negative BNP, I do feel that his interstitial edema may be more related to pneumonia or an infectious process. He was treated with Levaquin, and given an albuterol/ipratropium breathing treatment/aerosolized treatment. He was ambulated and his pulse ox remained 93% on room air. He did not become tachycardic or excessively tachypneic. I feel he be discharged safely home with follow-up to her primary care provider. He was told he may need referral to pulmonology for lung function study test. His daughter brought up that at the [facility] they were concerned about a pulmonary embolism. Given that he is not tachycardic, he has a normal pulse ox, normal EKG that was interpreted by myself as normal sinus rhythm at 85 bpm without ectopy or acute ST changes, and a low Wells criteria/score, I do feel that his shortness of breath is most likely secondary to a pneumonia/interstitial edema. He has a pulse ox at home and will continue to monitor his pulse ox. Return instructions to the emergency department were reviewed. He was written a prescription for Levaquin for the next 7 days and given his first dose here in the emergency department, and he was given a prescription for an albuterol inhaler. He was told of the risk of tendon rupture and acknowledges an understanding. Disposition is discharged home in stable condition. Lab Data Attestation: I reviewed the patient's lab results. Labs: Laboratory Results - last 24 hr 03/17/22 03/17/22 03/17/22 18:48 18:48 18:48 WBC 7.8 RBC 4.37 L Hgb 13.8 Hct 42.3 MCV 96.8 H MCH 31.6 MCHC 32.6 RDW Std Deviation 45.1 H RDW Coeff of Kapil 12.6 Plt Count 92 L MPV 9.9 Immature Gran % (Auto) 0.500 Neut % (Auto) 67.0 Lymph % (Auto) 15.1 L Mitchell % (Auto) 17.2 H Eos % (Auto) 0.1 Baso % (Auto) 0.1 Absolute Neuts (auto) 5.2 Absolute Lymphs (auto) 1.18 Nucleated RBC % 0 Sodium 140 Potassium 4.5 Chloride 106 Carbon Dioxide 26.0 Anion Gap 8 BUN 23 H Creatinine 1.19 Estim Creat Clear Calc 46.86 Est GFR (MDRD) Af Amer 75 Est GFR (MDRD) Non-Af 62 BUN/Creatinine Ratio 19.3 Glucose 117 H Calcium 9.0 Total Bilirubin 0.50 AST 30 ALT 29 Alkaline Phosphatase 53 Troponin I High Sens 17 B-Natriuretic Peptide 30.9 Total Protein 6.8 Albumin 3.4 Globulin 3.4 Albumin/Globulin Ratio 1.0 Urine Color Urine Clarity Urine pH Ur Specific [place] Urine Protein Urine Glucose (UA) Urine Ketones Urine Occult Blood Urine Nitrite Urine Bilirubin Urine Urobilinogen Ur Leukocyte Esterase Urine RBC Urine WBC Ur Squamous Epith Cells Urine Bacteria Urine Mucus 03/17/22 19:30 WBC RBC Hgb Hct MCV MCH MCHC RDW Std Deviation RDW Coeff of Kapil Plt Count MPV Immature Gran % (Auto) Neut % (Auto) Lymph % (Auto) Mitchell % (Auto) Eos % (Auto) Baso % (Auto) Absolute Neuts (auto) Absolute Lymphs (auto) Nucleated RBC % Sodium Potassium Chloride Carbon Dioxide Anion Gap BUN Creatinine Estim Creat Clear Calc Est GFR (MDRD) Af Amer Est GFR (MDRD) Non-Af BUN/Creatinine Ratio Glucose Calcium Total Bilirubin AST ALT Alkaline Phosphatase Troponin I High Sens B-Natriuretic Peptide Total Protein Albumin Globulin Albumin/Globulin Ratio Urine Color Yellow Urine Clarity Clear Urine pH 7.0 Ur Specific [place] 1.010 Urine Protein Negative Urine Glucose (UA) Normal Urine Ketones Negative Urine Occult Blood Negative Urine Nitrite Negative Urine Bilirubin Negative Urine Urobilinogen Normal Ur Leukocyte Esterase Negative Urine RBC 0 SEEN Urine WBC 0 SEEN Ur Squamous Epith Cells 0-5 SEEN Urine Bacteria 0 SEEN Urine Mucus 0 SEEN Discharge Plan Triage Chief Complaint: Shortness of Breath ED Provider: Jacob Alex Dx/Rx/DC Orders Clinical Impression: Pneumonia, SOB (shortness of breath), Dyspnea on exertion Instructions: ED Dyspnea, ED Pneumonia (Adult) Prescriptions: New levofloxacin 750 mg tablet 750 mg PO DAILY Qty: 7 0RF albuterol sulfate [Ventolin HFA] 90 mcg/actuation HFA aerosol inhaler 1 - 2 puff inhalation Q4H PRN PRN (Reason: Wheezing) Qty: 1 0RF No Action prednisone 20 mg tablet 20 mg PO DAILY Qty: 7 0RF famotidine 20 mg tablet 20 mg PO DAILY Qty: 14 0RF simvastatin 20 MG tablet 20 mg PO QODAY Advil PM 200-38 mg Tablet 1 cap PO QHS acetaminophen 500 mg Tablet 1,000 mg PO Q6H PRN (Reason: general pain) lorazepam 0.5 mg Tablet 0.25 mg PO Q6H PRN PRN (Reason: Anxiety) Qty: 15 0RF dexamethasone 4 mg Tablet 6 mg PO DAILY Qty: 9 0RF Rx Instructions: 1 1/2 tabs daily starting 10/31/20 pantoprazole 40 mg tablet,delayed release (DR/EC) 40 mg PO BID Qty: 60 2RF Primary Care Provider: Jose Beaver Referrals: Jose Beaver, DO [Primary Care Provider] - 3-5 Days if not improving Activity Restrictions/Additional Instructions: Take your antibiotic until its completion. Use the albuterol inhaler every 4-6 hours, 1 to 2 puffs inhaled as needed for shortness of breath. Return with a pulse ox consistently below 90% on room air. Follow-up with your primary care physician. You may need referral to pulmonology. Return with chest pain, increased shortness of breath, new or worsening symptoms. Disposition Disposition: Home, Self Care
[2022-03-17 18:55] VITALS: BP 108/65; PULSE 83; RESP 21; O2SAT 93
[2022-03-17 18:55] LABS: Absolute Lymphocyte Count 1.18 X10^3/uL (0.83-4.51); Absolute Neutrophil Count 5.2 X10^3/uL (2.0-7.7); Basophil# 0.01 X10^3/uL; Basophil% 0.1 % (0-1); Eosinophil# 0.01 X10^3/uL; Eosinophils% 0.1 % (0-5); Hematocrit 42.3 % (40-54); Hemoglobin 13.8 g/dL (13.0-16.5); Lymphocyte # 1.18 X10^3/ul (0.83-4.51); Lymphocyte % 15.1 % (19-41); Mean Corp Hgb Conc 32.6 g/dL (32-36); Mean Corpuscular Hgb 31.6 pg (27.0-32.0); Mean Corpuscular Volume 96.8 fL (80-94); Mean Platelet Vol. 9.9 fl (6.2-12.0); Monocyte# 1.34 X10^3/uL; Monocyte% 17.2 % (0-10); NRBC Flagged by Analyzer 0 % (0-5); Neutrophil # 5.23 X10^3/uL (2.7-7.7); POSITIVE COUNT YES; Platelet Count 92 K/mm3 (150-450); RBC Distribution Width CV 12.6 % (11.6-14.6); RBC Distribution Width SD 45.1 fl (35.1-43.9); Red Blood Count 4.37 M/mm3 (4.6-6.2); White Blood Count 7.8 K/mm3 (4.4-11.0)
[2022-03-17 19:21] LABS: AST(SGOT) 30 U/L (15-37); Alanine Aminotransfer ALT/SGPT 29 U/L (16-61); Albumin, Serum 3.4 g/dL (3.2-5.0); Alkaline Phosphatase 53 U/L (45-117); Anion Gap 8 (5-15); BUN 23 mg/dL (7-18); BUN/Creat Ratio 19.3 RATIO (10-20); Chloride 106 mmol/L (98-107); Creatinine, Serum 1.19 mg/dL (0.70-1.30); EST Glomerular Filtration Rate 62 mL/min (>60); Est Glom Filt Rate - Afr Amer 75 mL/min (>60); Estimated Creatinine Clearance 46.86 ml/min; Globulin 3.4 g/dL (2.2-4.2); Glucose 117 mg/dL (74-106); Potassium 4.5 mmol/L (3.5-5.1); Protein, Total 6.8 g/dL (6.4-8.2); Sodium Level 140 mmol/L (136-145); Troponin-I HS 17 pg/mL (3.0-78.0)
[2022-03-17 19:26] LABS: BNP,B-Type NATRIURETIC PEPTIDE 30.9 pg/mL (0-100)
[2022-03-17 19:30] VITALS: O2SAT 96
[2022-03-17 19:39] LABS: Color, Urine Yellow (Yellow); Glucose, Dipstick Normal (Normal); Ketone-Dipstick Negative (Negative); Leukocyte Esterase-Dipstick Negative /ul (Negative); Nitrite-Dipstick Negative (Negative); Occult Blood-Urine Negative /ul (Negative); Protein-Dipstick Negative (Negative); Urine Bilirubin Dipstick Negative (Negative); Urine Clarity Clear (Clear); Urine Urobilinogen Normal (Normal)
[2022-03-17] MEDS: Ipratropium/Albuterol Sulfate 3 ML AMPUL.NEB INHALATION (19:39)
[2022-03-17 19:41] LABS: Bacteria 0 SEEN /hpf (None Seen); Mucous, Urine 0 SEEN /hpf (<or=2+); Red Blood Cells-Urine 0 SEEN /hpf (0-5); White Blood Cells 0 SEEN /hpf (0-5)
[2022-03-17 19:59] LABS: Squamous Epithelial Cells - UA 0-5 SEEN /hpf (0-5)
[2022-03-17] MEDS: levoFLOXacin 750 MG Tablet PO (20:13)
[2022-03-17 20:26] VITALS: BP 132/70; PULSE 85; RESP 33; O2SAT 97
[2022-03-17 20:36] VITALS: BP 132/70; PULSE 92; RESP 30; O2SAT 97
[2022-03-17] MEDS: Albuterol Sulfate 8 gm Inhaler (60 puffs) 2 PUFF INHALATION (20:43)
--- NOTE | 2022-03-17 21:11 | ED.RN ---
PT DENIES WANTING MEDS TO BED. PT STATES HIS DAUGHTER WILL FILTER HELPER PRESCRIPTION IN THE MORNING.
== END 2022-03-17 21:28 | disposition home or self-care (01) ==
PROVIDERS: Emergency Provider Emergency Medicine; PCP Family Medicine; Visit Provider Emergency Medicine
DX: J18.9 Pneumonia, unspecified organism (principal); D69.6 Thrombocytopenia, unspecified; Z87.891 Personal history of nicotine dependence; E78.00 Pure hypercholesterolemia, unspecified; R06.02 Shortness of breath; R09.02 Hypoxemia
CPT/HCPCS: 71046; 80053; 81001; 83880; 84484; 85025; 87804; 93005; 94640; 99285; A4216

== ENCOUNTER → 2022-03-17 | Outpatient (CLI) | payer MEDICARE, SELFPAY ==
--- NOTE | 2022-03-17 17:00 | RAD_ITS ---
INDICATION: cough EXAMINATION/TECHNIQUE: X-RAY - XR Chest 2 Views COMPARISON: 01/18/2021. FINDINGS: Increased interstitial markings. Chronic scarring/atelectasis in the right upper lobe. The cardiomediastinal silhouette is unremarkable. No pleural effusion or pneumothorax. Degenerative changes of the thoracic spine. RAD/Chest PA and Lateral IMPRESSION: Increased interstitial markings may represent edema and/or infection. Electronically Signed: Joseph Fowler MD at 18:16 EST ,
== END | disposition home or self-care (01) ==
LOC: MTRAD 17:00
PROVIDERS: PCP Family Medicine; Referring Provider Physician Assistant Surgical; Visit Provider Physician Assistant Surgical
DX: R09.02 Hypoxemia (principal); R05.9 Cough, unspecified
CPT/HCPCS: 71046

== ENCOUNTER → 2022-03-28 | Outpatient (CLI) | payer MEDICARE, SELFPAY ==
--- NOTE | 2022-03-28 13:47 | ECHOD_ITS ---
Reason For Study: DYSPNEA Procedure This was a 2D Doppler, Color Flow transthoracic echocardiogram. The study was technically difficult. Exam performed in department. Left Ventricle Normal LV size. Left ventricular systolic function is normal. The estimated ejection fraction is 70 %. No evidence for diastolic dysfunction. No regional wall motion abnormalities noted. Right Ventricle Normal RV size. Normal systolic function. Atria Normal left atrium. Normal right atrium. No doppler evidence for ASD. Mitral Valve There is no mitral annular calcification. Mild focal mitral valve calcification of the posterior leaflet. Trivial mitral valve insufficiency. Tricuspid Valve Normal tricuspid valve. Trivial tricuspid valve insufficiency. Right ventricular systolic pressure estimated to be 24 mmHg. Aortic Valve Trisinus/trileaflet aortic valve. Mild focal aortic valve calcification. Trivial aortic valve insufficiency. Pulmonic Valve The pulmonic valve is not well visualized. Great Vessels Mildly dilated aortic root. Pericardium/Pleural No pericardial effusion. MMode/2D Measurements & Calculations LVIDd: 4.4 cm IVSd: 1.2 cm Ao root diam: 4.1 cm LVIDs: 2.3 cm LVPWd: 1.2 cm RVDd: 3.8 cm FS: 47.6 % LAV(MOD-sp4): 54.3 ml LVAd ap4: 29.4 cm2 SV(MOD-sp4): 62.9 ml LVLd ap4: 8.9 cm EDV(MOD-sp4): 80.2 ml EDV(sp4-el): 82.2 ml LVAs ap4: 11.3 cm2 LVLs ap4: 6.6 cm ESV(MOD-sp4): 17.3 ml ESV(sp4-el): 16.5 ml EF(MOD-sp4): 78.4 % EF(sp4-el): 79.9 % SV(sp4-el): 65.7 ml LA A4 area: 21.6 cm2 LA dimension(2D): 3.9 cm RA A4 area: 24.1 cm2 Time Measurements MV dec time: 0.23 sec Doppler Measurements & Calculations MV E max connor: 68.7 cm/sec Lat Peak E' Connor: 10.2 cm/sec Med Peak E' Connor: 8.1 cm/sec MV A max connor: 58.3 cm/sec E/E' lat: 6.7 E/E' med: 8.5 MV E/A: 1.2 MV V2 max: 85.6 cm/sec Ao V2 max: 147.7 cm/sec MV max P.9 mmHg MV dec slope: 295.1 cm/sec2 Ao max P.7 mmHg MV V2 mean: 49.5 cm/sec Ao V2 mean: 101.4 cm/sec MV mean P.2 mmHg Ao mean P.7 mmHg MV V2 VTI: 26.2 cm Ao V2 VTI: 35.2 cm AV (velocity ratio): 0.90 AI max connor: 427.4 cm/sec LV V1 max: 125.0 cm/sec PA V2 max: 87.2 cm/sec AI max P.1 mmHg LV V1 max P.3 mmHg PA V2 mean: 60.6 cm/sec LV V1 mean P.7 mmHg AI dec slope: 268.5 cm/sec2 LV V1 mean: 91.7 cm/sec AI P1/2t: 466.3 msec LV V1 VTI: 31.5 cm TR max connor: 226.5 cm/sec TR max P.5 mmHg ECHO/Echo Complete Interpretation Summary The study was technically difficult. Left ventricular systolic function is normal. The estimated ejection fraction is 70 %. Mild focal mitral valve calcification of the posterior leaflet. Trivial mitral valve insufficiency. Trivial tricuspid valve insufficiency. Mild focal aortic valve calcification. Trivial aortic valve insufficiency. Mildly dilated aortic root. Right ventricular systolic pressure estimated to be 24 mmHg. No evidence for diastolic dysfunction. Ordering Physician: Jose Beaver Referring Physician: Jsoe Beaver Performed By: Tonia Cordon RCS
== END | disposition home or self-care (01) ==
PROVIDERS: PCP Family Medicine; Visit Provider Family Medicine
DX: Z01.818 Encounter for other preprocedural examination (principal); R07.9 Chest pain, unspecified; I10 Essential (primary) hypertension; E78.5 Hyperlipidemia, unspecified; Z95.5 Presence of coronary angioplasty implant and graft; Z95.1 Presence of aortocoronary bypass graft
CPT/HCPCS: 93306

== ENCOUNTER → 2023-12-28 | Outpatient (CLI) | payer MEDICARE, SELFPAY ==
[2023-12-28 17:30] LABS: Absolute Lymphocyte Count 2.32 X10^3/uL (0.83-4.51); Absolute Neutrophil Count 5.1 X10^3/uL (2.0-7.7); Basophil# 0.03 X10^3/uL; Basophil% 0.3 % (0-1); Eosinophils% 1.1 % (0-5); Hematocrit 41.7 % (40-54); Hemoglobin 13.6 g/dL (13.0-16.5); Lymphocyte # 2.32 X10^3/ul (0.83-4.51); Lymphocyte % 26.5 % (19-41); Mean Corp Hgb Conc 32.6 g/dL (32-36); Mean Corpuscular Hgb 31.1 pg (27.0-32.0); Mean Corpuscular Volume 95.2 fL (80-94); Mean Platelet Vol. 11.1 fl (6.2-12.0); Monocyte# 1.19 X10^3/uL; Monocyte% 13.6 % (0-10); NRBC Flagged by Analyzer 0 % (0-5); Neutrophil # 5.09 X10^3/uL (2.7-7.7); Neutrophil % 58.2 % (47-70); Platelet Count 124 K/mm3 (150-450); RBC Distribution Width CV 12.4 % (11.6-14.6); RBC Distribution Width SD 43.2 fl (35.1-43.9); Red Blood Count 4.38 M/mm3 (4.6-6.2); White Blood Count 8.8 K/mm3 (4.4-11.0)
[2023-12-28 17:54] LABS: Vitamin B12 310 pg/mL (211-911)
[2023-12-28 18:01] LABS: ALB/GLOB Ratio 1.1 RATIO (0.9-2.4); AST(SGOT) 20 U/L (15-37); Alanine Aminotransfer ALT/SGPT 25 U/L (16-61); Albumin, Serum 3.8 g/dL (3.2-5.0); Alkaline Phosphatase 53 U/L (45-117); Anion Gap 5 (5-15); BUN 20 mg/dL (7-18); BUN/Creat Ratio 17.2 RATIO (10-20); Calcium,Total 9.5 mg/dL (8.5-10.1); Chloride 110 mmol/L (98-107); Cholesterol 159 mg/dL (200); Creatinine, Serum 1.16 mg/dL (0.70-1.30); EST Glomerular Filtration Rate 63 mL/min (>60); Est Glom Filt Rate - Afr Amer 77 mL/min (>60); Globulin 3.4 g/dL (2.2-4.2); Glucose 103 mg/dL (74-106); High Density Lipoprotein 45 mg/dL; Potassium 4.5 mmol/L (3.5-5.1); Protein, Total 7.2 g/dL (6.4-8.2); Sodium Level 141 mmol/L (136-145); Triglycerides 198 mg/dL; Very Low Density Lipoprotein 40 mg/dL (5-40)
== END | disposition home or self-care (01) ==
PROVIDERS: PCP Family Medicine; Referring Provider Family Medicine; Visit Provider Family Medicine
DX: Z51.81 Encounter for therapeutic drug level monitoring (principal); E78.5 Hyperlipidemia, unspecified; D69.6 Thrombocytopenia, unspecified; R20.2 Paresthesia of skin
CPT/HCPCS: 36415; 80053; 80061; 82607; 85025

== ENCOUNTER 2024-01-27 20:32 | Inpatient (IN) | payer MEDICARE, SELFPAY ==
[2024-01-27 20:37] VITALS: BP 143/76; PULSE 101; TEMP 37.2; O2SAT 93; BMI 27.2
--- NOTE | 2024-01-27 21:03 | EKG12_ITS ---
Test Reason : SOB Blood Pressure : */* mmHG Vent. Rate : 98 BPM Atrial Rate : 98 BPM P-R Int : 248 ms QRS Dur : 82 ms QT Int : 330 ms P-R-T Axes : 13 40 59 degrees QTcB Int : 421 ms Sinus rhythm with 1st degree A-V block Nonspecific T wave abnormality Abnormal ECG Confirmed by VELVET FOX, SALLY ([id number]), map editor KRYSTLE SHETH ([id number]) on 01/28/2024 8:26:55 AM Referred By: NOE Confirmed By: SALLY VERDIN MD
--- NOTE | 2024-01-27 21:03 | EX.ED.DYSGE1 ---
HPI History of Present Illness Chief Complaint: General Illness Narrative Narrative: Chief complaint and HPI: General malaise and left hip pain. 88-year-old male with past medical history of HLD, GERD presents for evaluation of general malaise and left hip pain. History taken by patient as well as daughter. Patient states that he has felt unwell today. He endorses body aches, fatigue, generalized weakness, and mild nausea. is home with similar symptoms. He endorses left hip pain. Denies any recent trauma or falls. Patient states that he tried to ambulate to the bathroom this evening and could not secondary to his hip pain and generalized weakness. He was unable to get up from the floor without help. He denies hitting his head, no LOC. States he landed on all 4 extremities. Denies any fever, cough, chest pain, abdominal pain, emesis, dysuria. He states that he does have some mild shortness of breath. Endorses decreased p.o. intake. Review of systems: See HPI Medications: As listed on the chart Allergies: As listed on the chart PFSH: Per chart Vital signs: As listed on the chart. Reviewed. Physical exam: Gen: A&O x3, NAD Head: Normocephalic, atraumatic Eyes: No sclera icterus, conjunctiva clear, PERRL, EOMI ENT: Dry mucous membranes Neck: Trachea midline, No JVD CV: RRR, no murmurs, no peripheral edema Resp: Lungs CTA BL, no w/r/c GI: Abd soft, non-distended, non-tender, no r/r/g Musc: Moves all extremities but generalized weakness, no deformity, mild tenderness to palpation of the left hip and thigh with movement-no signs of trauma or rash, DP/PT pulses plus 2 out of 4 bilaterally Skin: Warm, dry Neuro: Alert, oriented, grossly intact, sensation intact Psych: Cooperative, appropriate mood and affect [facility] Medical History (Updated 11/28/23 @ 07:14 by Emigdio LEE, PA) Olecranon bursitis of left elbow Acute maxillary sinusitis, unspecified Prepatellar bursitis, left knee High cholesterol Home Medications ?Medication ?Instructions ?Recorded ?Last Taken ?Type simvastatin 20 mg tablet 20 mg PO QODAY Arthurites pain 07/24/13 10/25/20 History acetaminophen 500 mg tablet 1,000 mg PO Q6H PRN general pain 10/26/20 Unknown History ibuprofen-diphenhydramine citrate 1 cap PO QHS 10/26/20 Unknown History 200 mg-38 mg tablet (Advil PM) lorazepam 0.5 mg tablet 0.25 mg (1/2 x 0.5 mg) PO Q6H PRN 10/30/20 Unknown Rx PRN Anxiety #15 tabs pantoprazole 40 mg tablet,delayed 40 mg PO BID #60 tabs 09/24/21 Unknown Rx release famotidine 20 mg tablet 20 mg PO DAILY #14 tabs 10/18/21 Unknown Rx albuterol sulfate 90 mcg/actuation 1 - 2 puff inhalation Q4H PRN PRN 03/17/22 Unknown Rx aerosol inhaler (Ventolin HFA) Wheezing #1 ea cetirizine 10 mg tablet (Zyrtec) 10 mg PO DAILY PRN 05/11/22 Unknown History citalopram 10 mg tablet (Celexa) 10 mg PO DAILY 05/11/22 Unknown History cyclobenzaprine 5 mg tablet 5 mg PO TID #30 tabs 01/21/23 Unknown Rx cephalexin 500 mg capsule 500 mg PO TID #21 caps 11/28/23 Unknown Rx Allergy/AdvReac Type Severity Reaction Status Date / Time No Known Allergies Allergy Verified 11/28/23 07:02 Surgical History H/O arthroscopic knee surgery Social History Smoking Status: Former smoker EXAM Physical Exam Const Vital Signs: 01/27/24 20:37 01/27/24 21:40 01/27/24 22:00 Temperature 98.9 F 97.7 F L 97.7 F L Temperature Source Oral Oral Oral Pulse Rate 101 H 99 84 Respiratory Rate 30 H 26 H Blood Pressure 143/76 H 165/100 H 136/63 H Blood Pressure Mean 98 121 87 Pulse Ox 93 99 94 Oxygen Delivery Method Room Air Room Air Room Air 01/27/24 23:00 Temperature 97.7 F L Temperature Source Oral Pulse Rate 77 Respiratory Rate 23 H Blood Pressure 144/67 H Blood Pressure Mean 92 Pulse Ox 92 Oxygen Delivery Method Room Air MDM MDM MDM Narrative Medical decision making narrative: 88-year-old male with past medical history of HLD, GERD presents for evaluation of general malaise and left hip pain. Differential diagnosis includes but is not limited to viral illness, influenza, COVID-19 infection, pneumonia, electrolyte abnormality, UTI. NS bolus Zofran and morphine ordered for symptoms. EKG, chest x-ray, pelvic x-ray reviewed see below. CBC with mild leukocytosis of 13.3. No anemia. CMP without ELMER or significant electrolyte abnormality. No transaminitis. Lipase unremarkable. UA shows mild dehydration with ketones. Negative for UTI. Patient positive for COVID-19 infection. Patient's oxygen has remained at 90 to 93% on room air. However during ambulation trial patient had weakness as well as acute hypoxia with saturations of 80%. Patient will warrant admission. Decadron ordered for COVID-19 hypoxia. Patient and family updated of all results and confirmed understand the plan. Hospitalist service accepted admission. EKG: Interpreted by me/EM physician: EKG shows sinus rhythm with first-degree AV block. Nonspecific ST changes. Heart rate 98. Diagnostic: Interpreted by me/EM physician: Chest x-ray without pneumonia, effusion, cardiomegaly, pneumothorax. Left hip x-ray and pelvic x-ray without fracture or dislocation. Patient has arthritis Impression: 1. Acute hypoxia with ambulation, secondary to #2 2. COVID-19 infection 3. Generalized weakness 4. Mild dehydration 5. Left hip pain Lab Data Labs: Laboratory Results - last 24 hr 01/27/24 01/27/24 20:40 21:10 WBC 13.3 H RBC 4.49 L Hgb 13.9 Hct 41.2 MCV 91.8 MCH 31.0 MCHC 33.7 RDW Std Deviation 41.1 RDW Coeff of Kapil 12.1 Plt Count 119 L MPV 10.7 Immature Gran % (Auto) 0.400 Neut % (Auto) 77.4 H Lymph % (Auto) 9.3 L [place] % (Auto) 12.7 H Eos % (Auto) 0.1 Baso % (Auto) 0.1 Absolute Neuts (auto) 10.3 H Absolute Lymphs (auto) 1.24 Nucleated RBC % 0 Differential Comment SCANNED Diff Path Review May foll Sodium 136 Potassium 3.9 Chloride 105 Carbon Dioxide 22.0 Anion Gap 10 BUN 17 Creatinine 1.16 Estim Creat Clear Calc 46.32 Est GFR (MDRD) Af Amer 77 Est GFR (MDRD) Non-Af 63 BUN/Creatinine Ratio 14.7 Glucose 156 H Calcium 9.4 Total Bilirubin 0.80 AST 20 ALT 20 Alkaline Phosphatase 64 Troponin I High Sens 13 Total Protein 7.0 Albumin 3.7 Globulin 3.3 Albumin/Globulin Ratio 1.1 Lipase 20 Urine Color Yellow Urine Clarity Clear Urine pH 8.0 Ur Specific [place] 1.015 Urine Protein Negative Urine Glucose (UA) Normal Urine Ketones 15 H Urine Occult Blood 10 H Urine Nitrite Negative Urine Bilirubin Negative Urine Urobilinogen Normal Ur Leukocyte Esterase Negative Urine RBC 0-5 SEEN Urine WBC 0 SEEN Ur Squamous Epith Cells 0 SEEN Urine Bacteria 0 SEEN Urine Mucus 0 SEEN Radiography Diagnostic Testing: Clinical Impression(s) from Imaging Studies Hip/Pelvis X-Ray 01/27/24 21:07 IMPRESSION: No evidence of displaced pelvic or hip fracture. Degenerative right hip joint changes. Electronically Signed: Aster Scott MD at 23:29 EST Reading Location ID and State: [facility] / [place] Tel , Service support , Chest X-Ray 01/27/24 21:20 IMPRESSION: Stable exam with scarring and COPD. Electronically Signed: Aster Scott MD at 23:27 EST , Discharge Plan Triage Chief Complaint: General Illness ED Provider: Jair Esqueda Dx/Rx/DC Orders Prescriptions: No Action famotidine 20 mg tablet 20 mg PO DAILY Qty: 14 0RF cetirizine [Zyrtec] 10 mg tablet 10 mg PO DAILY PRN citalopram [Celexa] 10 mg tablet 10 mg PO DAILY cyclobenzaprine 5 mg tablet 5 mg PO TID Qty: 30 0RF cephalexin 500 mg capsule 500 mg PO TID Qty: 21 0RF simvastatin 20 MG tablet 20 mg PO QODAY Advil PM 200-38 mg Tablet 1 cap PO QHS acetaminophen 500 mg Tablet 1,000 mg PO Q6H PRN (Reason: general pain) lorazepam 0.5 mg Tablet 0.25 mg PO Q6H PRN PRN (Reason: Anxiety) Qty: 15 0RF albuterol sulfate [Ventolin HFA] 90 mcg/actuation HFA aerosol inhaler 1 - 2 puff inhalation Q4H PRN PRN (Reason: Wheezing) Qty: 1 0RF pantoprazole 40 mg tablet,delayed release (DR/EC) 40 mg PO BID Qty: 60 2RF Primary Care Provider: Jose Beaver Referrals: Jose Beaver DO [Primary Care Provider] - Print Language: Swedish
--- NOTE | 2024-01-27 21:07 | RAD_ITS ---
EXAM: XR LEFT HIP WITH AP PELVIS , 3 VIEWS CLINICAL INDICATION: Pain TECHNIQUE: Two views of the left hip with AP pelvis. COMPARISON: No relevant prior studies available. FINDINGS: BONES/JOINTS: Moderate narrowing of the superior-medial right hip joint compared to the left. Normal-appearing bone density. SOFT TISSUES: Unremarkable. No soft tissue swelling or gas. RAD/HIP, UNI W/ Pelvis 2-3 Views IMPRESSION: No evidence of displaced pelvic or hip fracture. Degenerative right hip joint changes. Electronically Signed: Aster Scott MD at 23:29 EST ,
[2024-01-27] MEDS: 0.9% Normal Saline (1000mL) 1,000 ML 1000 ML IV (21:15)
[2024-01-27] MEDS: Ondansetron 4 MG/2 ML Vial IV (21:15)
--- NOTE | 2024-01-27 21:20 | RAD_ITS ---
EXAM: XR CHEST, 2 VIEWS CLINICAL INDICATION: shortness of breath TECHNIQUE: Frontal and lateral views of the chest. COMPARISON: March 17, 2022, January 18, 2021, [place] October 26, 2020 FINDINGS: LUNGS AND PLEURAL SPACES: Similar appearance of mild elevation of the minor fissure with immediately superior streaky opacity, consistent with scarring. Similar levels of the hemidiaphragms. No pneumothorax. No effusion. HEART: Unremarkable. Cardiac silhouette not enlarged. MEDIASTINUM: Central airways and mediastinal contour are unremarkable. BONES/JOINTS: Unremarkable. No acute fracture. SOFT TISSUES: Unremarkable. RAD/Chest PA and Lateral IMPRESSION: Stable exam with scarring and COPD. Electronically Signed: Aster Scott MD at 23:27 EST ,
[2024-01-27 21:23] LABS: Absolute Lymphocyte Count 1.24 X10^3/uL (0.83-4.51); Absolute Neutrophil Count 10.3 X10^3/uL (2.0-7.7); Basophil# 0.02 X10^3/uL; Basophil% 0.1 % (0-1); Eosinophil# 0.02 X10^3/uL; Eosinophils% 0.1 % (0-5); Hematocrit 41.2 % (40-54); Hemoglobin 13.9 g/dL (13.0-16.5); Lymphocyte # 1.24 X10^3/ul (0.83-4.51); Lymphocyte % 9.3 % (19-41); Mean Corp Hgb Conc 33.7 g/dL (32-36); Mean Corpuscular Volume 91.8 fL (80-94); Mean Platelet Vol. 10.7 fl (6.2-12.0); Monocyte# 1.69 X10^3/uL; Monocyte% 12.7 % (0-10); NRBC Flagged by Analyzer 0 % (0-5); Neutrophil # 10.32 X10^3/uL (2.7-7.7); Neutrophil % 77.4 % (47-70); POSITIVE DIFFERENTIAL YES; Platelet Count 119 K/mm3 (150-450); RBC Distribution Width CV 12.1 % (11.6-14.6); RBC Distribution Width SD 41.1 fl (35.1-43.9); Red Blood Count 4.49 M/mm3 (4.6-6.2); White Blood Count 13.3 K/mm3 (4.4-11.0)
[2024-01-27 21:31] LABS: Bacteria 0 SEEN /hpf (None Seen); Mucous, Urine 0 SEEN /hpf (<or=2+); Squamous Epithelial Cells - UA 0 SEEN /hpf (0-5); White Blood Cells 0 SEEN /hpf (0-5)
[2024-01-27 21:40] VITALS: BP 165/100; PULSE 99; RESP 30; TEMP 36.5; O2SAT 99
[2024-01-27 21:42] LABS: Differential Indicated SCAN CRITERIA MET
[2024-01-27 21:42] LABS: Color, Urine Yellow (Yellow); Glucose, Dipstick Normal (Normal); Ketone-Dipstick 15 mg/dl (Negative); Leukocyte Esterase-Dipstick Negative /ul (Negative); Nitrite-Dipstick Negative (Negative); Occult Blood-Urine 10 /ul (Negative); Protein-Dipstick Negative (Negative); Specific Gravity, Urine 1.015 (1.002-1.030); Urine Bilirubin Dipstick Negative (Negative); Urine Clarity Clear (Clear); Urine Urobilinogen Normal (Normal)
[2024-01-27 21:46] LABS: ALB/GLOB Ratio 1.1 RATIO (0.9-2.4); AST(SGOT) 20 U/L (15-37); Alanine Aminotransfer ALT/SGPT 20 U/L (16-61); Albumin, Serum 3.7 g/dL (3.2-5.0); Alkaline Phosphatase 64 U/L (45-117); Anion Gap 10 (5-15); BUN 17 mg/dL (7-18); BUN/Creat Ratio 14.7 RATIO (10-20); Calcium,Total 9.4 mg/dL (8.5-10.1); Chloride 105 mmol/L (98-107); Creatinine, Serum 1.16 mg/dL (0.70-1.30); EST Glomerular Filtration Rate 63 mL/min (>60); Est Glom Filt Rate - Afr Amer 77 mL/min (>60); Estimated Creatinine Clearance 46.32 ml/min; Globulin 3.3 g/dL (2.2-4.2); Glucose 156 mg/dL (74-106); Lipase 20 U/L (13-75); Potassium 3.9 mmol/L (3.5-5.1); Sodium Level 136 mmol/L (136-145); Troponin-I HS 13 pg/mL (3.0-78.0)
[2024-01-27 22:00] VITALS: BP 136/63; PULSE 84; RESP 26; TEMP 36.5; O2SAT 94
[2024-01-27 22:08] LABS: Red Blood Cells-Urine 0-5 SEEN /hpf (0-5)
[2024-01-27] MEDS: Morphine 2 MG/ML Syringe IV (22:17)
[2024-01-27 22:19] LABS: Differential Comment SCANNED
[2024-01-27 23:00] VITALS: BP 144/67; PULSE 77; RESP 23; TEMP 36.5; O2SAT 92
[2024-01-27 23:49] VITALS: O2SAT 94
[2024-01-28] VITALS (12 sets, daily range): BP systolic 133–160; BP diastolic 57–82; PULSE 67–97; RESP 18–24; TEMP 36.5–38; O2SAT 86–100; BMI 26.4
--- NOTE | 2024-01-28 00:04 | HP.PCM.HOS_ITS ---
HPI - General General Date of Admission: 01/28/24 HPI Narrative SAEID CHAMORRO, is a 88 M who presents to the hospital with weakness and myalgias. Symptoms started about 2 to 3 days ago his is also sick. On admission to the ER he tested positive for COVID and is not requiring any oxygen with rest however with activity he dropped to 80% on room air. Denies any fevers or chills and chest x-ray was negative for any type of consolidation or signs of bacterial pneumonia. He did have a fall today and struggled to get back up, no signs of fracture on his pelvis x-ray. He has gotten vaccinated for COVID and had COVID in 2020. [facility] Medical History (Updated 01/28/24 @ 00:[address] Abrahan Stokes MD) Olecranon bursitis of left elbow Acute maxillary sinusitis, unspecified Prepatellar bursitis, left knee High cholesterol Home Medications ?Medication ?Instructions ?Recorded ?Last Taken ?Type simvastatin 20 mg tablet 20 mg PO QODAY Arthurites pain 07/24/13 10/25/20 History ibuprofen-diphenhydramine citrate 1 cap PO QHS pain 10/26/20 Unknown History 200 mg-38 mg tablet (Advil PM) Allergy/AdvReac Type Severity Reaction Status Date / Time No Known Allergies Allergy Verified 11/28/23 07:02 Family History (Updated 01/28/24 @ 00:[address] Abrahan Stokes MD) Other Heart disease Surgical History H/O arthroscopic knee surgery Social History Smoking Status: Former smoker ROS Constitutional Constitutional: Reports fatigue and weakness; Denies chills, fever(s) or malaise Eyes Eyes: Denies blurry vision ENT HEENT: Denies headache(s) or nasal discharge Cardiovascular Cardiovascular: Denies chest pain, dyspnea on exertion or syncope Respiratory/Chest Respiratory/Chest: Reports cough; Denies shortness of breath at rest or shortness of breath with exertion Gastrointestinal Gastrointestinal: Denies constipation, diarrhea, nausea or vomiting Genitourinary Genitourinary: Denies dysuria Musculoskeletal Musculoskeletal: Reports myalgias Neurologic Neurologic: Denies focal weakness, numbness or tremor(s) Psychiatric Psychiatric: Denies anxiety or depression Vital Signs Vital Signs Vital Signs: 01/27/24 20:37 01/27/24 21:40 01/27/24 22:00 Temperature 98.9 F 97.7 F L 97.7 F L Temperature Source Oral Oral Oral Pulse Rate 101 H 99 84 Respiratory Rate 30 H 26 H Blood Pressure 143/76 H 165/100 H 136/63 H Blood Pressure Mean 98 121 87 Pulse Ox 93 99 94 Oxygen Delivery Method Room Air Room Air Room Air 01/27/24 23:00 Temperature 97.7 F L Temperature Source Oral Pulse Rate 77 Respiratory Rate 23 H Blood Pressure 144/67 H Blood Pressure Mean 92 Pulse Ox 92 Oxygen Delivery Method Room Air Weight Weight: 190 lb 0.615 oz Body Mass Index (BMI) 27.2 Physical Exam Narrative General: Alert, Oriented x3, Cooperative, No apparent distress HEENT: Atraumatic, PERRLA, EOMI, Normocephalic Oral: Moist Mucosa Neck: Supple, No JVD Lungs: Diminished, Normal air movement, No rhonchi, No wheeze, No rales Cardiovascular: Regular rate, Regular Rhythm, Normal S1, Normal S2, No murmurs Abdomen: Soft, Non Tender, Non-Distended, No Hepato-splenomegaly Extremities: No edema, Capillary Refill Less than 3 Seconds Skin: No rashes, No breakdown Musculoskeletal: No Tenderness to Palpation of Joints or Extremities Neurological: No focal neurological deficits, Motor Exam 5/5 strength throughout, Sensory exam intact to light touch and pain Psych/Mental Status: Normal Affect, Appropriate Results Lab / Micro Data 01/27/24 20:40 01/27/24 20:40 Labs: Laboratory Results - last 24 hr 01/27/24 20:40: WBC 13.3 H, RBC 4.49 L, Hgb 13.9, Hct 41.2, MCV 91.8, MCH 31.0, MCHC 33.7, RDW Std Deviation 41.1, RDW Coeff of Kapil 12.1, Plt Count 119 L, MPV 10.7, Immature Gran % (Auto) 0.400, Neut % (Auto) 77.4 H, Lymph % (Auto) 9.3 L, [place] % (Auto) 12.7 H, Eos % (Auto) 0.1, Baso % (Auto) 0.1, Absolute Neuts (auto) 10.3 H, Absolute Lymphs (auto) 1.24, Nucleated RBC % 0, Differential Comment SCANNED, Diff Path Review May foll, Sodium 136, Potassium 3.9, Chloride 105, Carbon Dioxide 22.0, Anion Gap 10, BUN 17, Creatinine 1.16, Estim Creat Clear Calc 46.32, Est GFR (MDRD) Af Amer 77, Est GFR (MDRD) Non-Af 63, BUN/Creatinine Ratio 14.7, Glucose 156 H, Calcium 9.4, Total Bilirubin 0.80, AST 20, ALT 20, Alkaline Phosphatase 64, Troponin I High Sens 13, Total Protein 7.0, Albumin 3.7, Globulin 3.3, Albumin/Globulin Ratio 1.1, Lipase 20 01/27/24 21:10: Urine Color Yellow, Urine Clarity Clear, Urine pH 8.0, Ur Specific [place] 1.015, Urine Protein Negative, Urine Glucose (UA) Normal, Urine Ketones 15 H, Urine Occult Blood 10 H, Urine Nitrite Negative, Urine Bilirubin Negative, Urine Urobilinogen Normal, Ur Leukocyte Esterase Negative, Urine RBC 0-5 SEEN, Urine WBC 0 SEEN, Ur Squamous Epith Cells 0 SEEN, Urine Bacteria 0 SEEN, Urine Mucus 0 SEEN Micro: Microbiology 01/27/24 21:10 Mucosa - Nose SARS-CoV-2, Influenza & RSV (PCR) - Final Imaging Radiology Impression Hip/Pelvis X-Ray 01/27/24 21:07 IMPRESSION: No evidence of displaced pelvic or hip fracture. Degenerative right hip joint changes. Electronically Signed: Aster Scott MD at 23:29 EST , Chest X-Ray 01/27/24 21:20 IMPRESSION: Stable exam with scarring and COPD. Electronically Signed: Aster Scott MD at 23:27 EST , Assessment & Plan Assessment/Plan (1) COVID: PLAN: Plan 1. Acute hypoxic insufficiency on ambulation in the setting of COVID ? Continue with Decadron ? Wean oxygen as able ? He does have a slight leukocytosis to 13 but no signs of consolidation, will monitor and have a low threshold to repeat imaging and advanced treatment with either antibiotics or Lasix depending on the severity of his hypoxia 2. Hyperlipidemia ? Stable ? Continue with statin DVT: Lovenox Charges/Coding Visit Charges Inpatient E&M: 62827 Init Hosp L2
[2024-01-28] MEDS: dexAMETHasone 10 MG/ML Vial 6 MG IV (00:26)
[2024-01-28 07:09] LABS: Absolute Lymphocyte Count 0.73 X10^3/uL (0.83-4.51); Absolute Neutrophil Count 8.2 X10^3/uL (2.0-7.7); Basophil# 0.01 X10^3/uL; Basophil% 0.1 % (0-1); Hematocrit 40.6 % (40-54); Hemoglobin 13.8 g/dL (13.0-16.5); Lymphocyte # 0.73 X10^3/ul (0.83-4.51); Lymphocyte % 7.8 % (19-41); Mean Corpuscular Hgb 31.2 pg (27.0-32.0); Mean Corpuscular Volume 91.9 fL (80-94); Mean Platelet Vol. 10.4 fl (6.2-12.0); Monocyte# 0.28 X10^3/uL; NRBC Flagged by Analyzer 0 % (0-5); Neutrophil # 8.22 X10^3/uL (2.7-7.7); Neutrophil % 88.5 % (47-70); Platelet Count 106 K/mm3 (150-450); RBC Distribution Width CV 12.3 % (11.6-14.6); RBC Distribution Width SD 41.1 fl (35.1-43.9); Red Blood Count 4.42 M/mm3 (4.6-6.2); White Blood Count 9.3 K/mm3 (4.4-11.0)
[2024-01-28 07:46] LABS: Anion Gap 8 (5-15); BUN 17 mg/dL (7-18); Chloride 108 mmol/L (98-107); Creatinine, Serum 1.13 mg/dL (0.70-1.30); EST Glomerular Filtration Rate 65 mL/min (>60); Est Glom Filt Rate - Afr Amer 79 mL/min (>60); Estimated Creatinine Clearance 47.55 ml/min; Glucose 174 mg/dL (74-106); Sodium Level 137 mmol/L (136-145)
[2024-01-28] MEDS: dexAMETHasone 4 MG Tablet 6 MG PO (09:31)
[2024-01-28] MEDS: Remdesivir 200 MG in 0.9% Normal Saline (250mL Bag) 210 ML 250 MG IV (11:28)
--- NOTE | 2024-01-28 13:48 | CASEMGMT ---
AVINASH HAUSER Assessment Face to Face with patient for initial transition planning/care coordination assessment. AVINASH HAUSER introduced self and role at [facility], pt voices understanding. Pt is A&Ox4 and is resting comfortably in bed and is calm. Care providers, pharmacy, and demographics verified. Admitting dx: COVID with ambulatory hypoxia LACE Strata: 1 PCP: Jose Beaver Specialists: Leo (Eye), Julio (Dermatology) Preferred Pharmacy: [facility] Insurance: [email or web address] [facility] Prescription Benefit: Yes LNOK: Parisa Gary (W), Mitesh Donte (Nawaf) Living Arrangements: Pt lives with his in a single story condo with 1 step to enter ADLs/IADLs: Ind Transportation: Self, daughter DME: History of home oxygen through [facility]. Pt states that if he qualifies for oxygen again that he prefers [employer]. Pt has a pulse ox at home. Pt reports that he also has a cane, rollator, FWW, grab bars and a transport chair. HHC/SNF: Reports HH history but is unsure of the agency. denies SNF history or needs. Pt states that he has been to for OP therapy Pt?s goal: Return home with Plan: Anticipate eventual DC home with pt and possible oxygen. 6-Click is 23. At this time, the pt denies the need for HH, OP Tx, or CCN. Pt states that he feels safe returning home with his once he is medically ready. CM to follow for oxygen needs. Report given to LINE TECHNICIAN CM. Adrian Elliott RN, CM
--- NOTE | 2024-01-28 15:40 | PCM.PN.HOSP ---
Reason for Visit Reason for Visit: Diagnoses COVID-19 (01/28/24) Objective Data Objective Data Vital Signs: Vital Signs Temp Pulse Resp BP Pulse Ox O2 Del Method O2 Flow Rate 98.0 F 73 20 H 133/65 H 96 Nasal Cannula 2 01/28/24 09:37 01/28/24 09:37 01/28/24 09:37 01/28/24 09:37 01/28/24 09:37 01/28/24 09:37 01/28/24 09:37 Oxygen Flow Rate (L/min) 2 Oxygen Delivery Method Nasal Cannula Weight: 184 lb 1.376 oz Body Mass Index (BMI) 26.4 Intake & Output: Intake and Output for Last 24 Hours 01/26/24 01/27/24 01/28/24 23:59 23:59 23:59 Intake Total 1000 / 1000 100 / 100 Balance 1000 / 1000 100 / 100 Lab / Micro Data 01/28/24 06:52 01/28/24 06:52 Labs: Laboratory Results - last 24 hr 01/27/24 20:40: WBC 13.3 H, RBC 4.49 L, Hgb 13.9, Hct 41.2, MCV 91.8, MCH 31.0, MCHC 33.7, RDW Std Deviation 41.1, RDW Coeff of Kapil 12.1, Plt Count 119 L, MPV 10.7, Immature Gran % (Auto) 0.400, Neut % (Auto) 77.4 H, Lymph % (Auto) 9.3 L, [place] % (Auto) 12.7 H, Eos % (Auto) 0.1, Baso % (Auto) 0.1, Absolute Neuts (auto) 10.3 H, Absolute Lymphs (auto) 1.24, Nucleated RBC % 0, Differential Comment SCANNED, Diff Path Review June, Sodium 136, Potassium 3.9, Chloride 105, Carbon Dioxide 22.0, Anion Gap 10, BUN 17, Creatinine 1.16, Estim Creat Clear Calc 46.32, Est GFR (MDRD) Af Amer 77, Est GFR (MDRD) Non-Af 63, BUN/Creatinine Ratio 14.7, Glucose 156 H, Calcium 9.4, Total Bilirubin 0.80, AST 20, ALT 20, Alkaline Phosphatase 64, Troponin I High Sens 13, Total Protein 7.0, Albumin 3.7, Globulin 3.3, Albumin/Globulin Ratio 1.1, Lipase 20 01/27/24 21:10: Urine Color Yellow, Urine Clarity Clear, Urine pH 8.0, Ur Specific [place] 1.015, Urine Protein Negative, Urine Glucose (UA) Normal, Urine Ketones 15 H, Urine Occult Blood 10 H, Urine Nitrite Negative, Urine Bilirubin Negative, Urine Urobilinogen Normal, Ur Leukocyte Esterase Negative, Urine RBC 0-5 SEEN, Urine WBC 0 SEEN, Ur Squamous Epith Cells 0 SEEN, Urine Bacteria 0 SEEN, Urine Mucus 0 SEEN 01/28/24 06:52: WBC 9.3, RBC 4.42 L, Hgb 13.8, Hct 40.6, MCV 91.9, MCH 31.2, MCHC 34.0, RDW Std Deviation 41.1, RDW Coeff of Kapil 12.3, Plt Count 106 L, MPV 10.4, Immature Gran % (Auto) 0.600, Neut % (Auto) 88.5 H, Lymph % (Auto) 7.8 L, [place] % (Auto) 3.0, Eos % (Auto) 0.0, Baso % (Auto) 0.1, Absolute Neuts (auto) 8.2 H, Absolute Lymphs (auto) 0.73 L, Nucleated RBC % 0, Sodium 137, Potassium 4.0, Chloride 108 H, Carbon Dioxide 21.0, Anion Gap 8, BUN 17, Creatinine 1.13, Estim Creat Clear Calc 47.55, Est GFR (MDRD) Af Amer 79, Est GFR (MDRD) Non-Af 65, BUN/Creatinine Ratio 15.0, Glucose 174 H, Calcium 9.0 Micro: Microbiology 01/27/24 21:10 Mucosa - Nose SARS-CoV-2, Influenza & RSV (PCR) - Final Radiography Diagnostic Testing: Radiology Impression Hip/Pelvis X-Ray 01/27/24 21:07 IMPRESSION: No evidence of displaced pelvic or hip fracture. Degenerative right hip joint changes. Electronically Signed: Aster Scott MD at 23:29 EST , Chest X-Ray 01/27/24 21:20 IMPRESSION: Stable exam with scarring and COPD. Electronically Signed: Aster Scott MD at 23:27 EST , Physical Exam Narrative Seen and examined. History taken from the patient and her daughter who is a pharmacist Patient main complaint was tiredness and fatigue for 5 days and his is COVID-positive too. He denies cough, sputum production, shortness of breath but he felt subjective fever chills and cold and nasal congestion and URI symptoms. Decreased appetite. Denies abdominal pain, alteration of bowel habit or dysuria. Last night, his pulse ox dropped to 86% on room air therefore put on 2 L of oxygen. Physical exam General: Alert, Oriented x3, Cooperative. Fatigue HEENT: Atraumatic, PERRLA, EOMI, Normocephalic Oral: Oral mucosa dry no Gingival or Mucosal Lesions/ Ulcerations Neck: Supple, No JVD, Negative Carotid Bruits Chest wall/Lungs: Air entry diminished in bilateral lung bases. No crepitation/rhonchi Cardiovascular: Regular rate, Regular Rhythm, Normal S1, Normal S2, No M/G/R Abdomen: Bowel Sounds Present, Soft, Non Tender, Non-Distended : No dysuria. No renal angle tenderness. No suprapubic tenderness. Extremities: No edema, Capillary Refill Less than 3 Seconds Skin: No rashes, No breakdown Musculoskeletal: No Tenderness to Palpation of Joints or Extremities Neurological: Cranial nerves II-XII grossly intact, DTR 2+/4. No acute focal neurological deficit. Psych/Mental Status: Flat affect Assessment & Plan Assessment/Plan (1) COVID: PLAN: Plan This 88-year-old gentleman was admitted with mild subjective fever, fatigue and URI symptoms but no cough. 1. Acute COVID-19 infection with scarring and chronic changes of COPD: Patient is being admitted in PCU. Chest x-ray initially reviewed and shows chronic changes but no acute consolidation. Clinically, symptoms of URI but no cough and hypoxia, COVID-19 pneumonia. Patient started on dexamethasone. Remdesivir added. ? ? He does have a slight leukocytosis to 13 K. 2. Chest x-ray findings of COPD: Patient is a former smoker. Patient not on inhaler at home. Unclear about the clinical diagnosis of COPD as patient does not have PFT in the record. 3. Hyperlipidemia ? Continue with statin DVT: Lovenox Charges/Coding Visit Charges Inpatient E&M: 24252 Subs Hosp L2
[2024-01-28] MEDS: 0.9% Saline Lock 10 ML Syringe IV (21:56)
[2024-01-29 03:30] VITALS: BP 170/80; PULSE 65; RESP 20; TEMP 3.1; TEMP 37.5; O2SAT 97
[2024-01-29 05:00] VITALS: BP 170/80; PULSE 65; RESP 20; TEMP 36.4; O2SAT 97
[2024-01-29 06:56] VITALS: O2SAT 95
[2024-01-29 07:43] LABS: Hematocrit 43.8 % (40-54); Hemoglobin 14.4 g/dL (13.0-16.5); Mean Corp Hgb Conc 32.9 g/dL (32-36); Mean Corpuscular Volume 94.2 fL (80-94); Mean Platelet Vol. 10.8 fl (6.2-12.0); Platelet Count 130 K/mm3 (150-450); RBC Distribution Width CV 12.4 % (11.6-14.6); RBC Distribution Width SD 42.8 fl (35.1-43.9); Red Blood Count 4.65 M/mm3 (4.6-6.2); White Blood Count 18.7 K/mm3 (4.4-11.0)
[2024-01-29 08:11] LABS: AST(SGOT) 178 U/L (15-37); Alanine Aminotransfer ALT/SGPT 60 U/L (16-61); Albumin, Serum 3.7 g/dL (3.2-5.0); Alkaline Phosphatase 56 U/L (45-117); Anion Gap 5 (5-15); BUN 29 mg/dL (7-18); BUN/Creat Ratio 25.4 RATIO (10-20); Calcium,Total 9.6 mg/dL (8.5-10.1); Chloride 108 mmol/L (98-107); Creatinine, Serum 1.14 mg/dL (0.70-1.30); EST Glomerular Filtration Rate 65 mL/min (>60); Est Glom Filt Rate - Afr Amer 78 mL/min (>60); Estimated Creatinine Clearance 47.14 ml/min; Globulin 3.7 g/dL (2.2-4.2); Glucose 131 mg/dL (74-106); Protein, Total 7.4 g/dL (6.4-8.2); Sodium Level 140 mmol/L (136-145)
[2024-01-29 10:20] VITALS: BP 160/60; PULSE 65; RESP 18; TEMP 36; O2SAT 98
[2024-01-29] MEDS: dexAMETHasone 4 MG Tablet 6 MG PO (10:24)
[2024-01-29] MEDS: APIXABAN 2.5 MG TABLET (WCH) PO (10:25)
[2024-01-29] MEDS: Remdesivir 100 MG in 0.9% Normal Saline (250mL Bag) 230 ML 250 MG IV (10:25)
[2024-01-29 10:58] LABS: Pathologist Review Reviewed
--- NOTE | 2024-01-29 11:03 | PCM.DC ---
Discharge Instructions Diet Discharge Diet: No restrictions DC O2, CPAP, BIPAP needs Home O2 Discharge instructions: No Dressing / Incision Discharge Activity: Return to Normal Activity Weight Bearing Status: Weight bearing as tolerated Dressing / Incision Call your doctor if you observe: Fever of 101 or Higher, Coldness, Increased Pain, Numbness or Tingling, Change in Color, Inability to urinate, Inability to have a bowel movement, Shortness of breath, Dizziness, Fainting spells, Swelling in the ankles, Chest pain, Prolonged hiccupping, Increased palpitations (irregular heartbeat) and Calf discomfort Follow Up Care When: IN 2 WEEKS Test Results: Test results from this visit will be discussed in further detail at your follow-up appointment, if applicable. Discharge Plan Admission Admit Date/Time: 01/28/24 00:23 Primary Reason for Your Visit: COVID-19 Attending Provider: Kumar Alcantara Primary Care Provider: Jose Beaver Consulting Providers: Abrahan Stokes Discharge Orders/Prescriptions Prescriptions: New Eliquis 5 mg Tablet 2.5 mg PO BID 14 Days Qty: 14 0RF dexamethasone 6 mg tablet 6 mg PO DAILY 8 Days Qty: 8 0RF Continued simvastatin 20 MG tablet 20 mg PO QODAY Held Advil PM 200-38 mg Tablet 1 cap PO QHS Hold Instructions: Hold while taking Eliquis Referrals / Follow Up: Jose Beaver DO [Primary Care Provider] - Within 2 Weeks (High blood pressure.) Disposition Disposition (needs filled in before D/C Order can be placed): Home, Self Care
--- NOTE | 2024-01-29 12:39 | PCM.DC.SUM ---
Providers Date of Admission: 01/28/24 Date of Discharge: 01/29/24 Primary Care Physician: Dr. Jose Beaver, Reason For Visit: COVID WITH AMBULATORY HYPOXIA Diagnosis Discharge Diagnosis (1) COVID: Status: Acute Code(s): U07.1 - COVID-19 Plan This 88-year-old gentleman was admitted with mild subjective fever, fatigue and URI symptoms but no cough. 1. Acute COVID-19 infection with scarring and chronic changes of COPD: Patient is being admitted in PCU. Chest x-ray initially reviewed and shows chronic changes but no acute consolidation. Clinically, symptoms of URI but no cough and hypoxia, COVID-19 pneumonia. Patient started on dexamethasone. Remdesivir added. 01/28: Patient completed second dose of remdesivir. Patient on room air 98%. Prescription given for 8 more days of dexamethasone 6 mg daily to complete total of 10 days. Prescription for Eliquis for 2-weeks. 2. Hypertension: Blood pressure is elevated. BP 160/60 mmHg. ? He does have a slight leukocytosis to 13 K. 2. Chest x-ray findings of COPD: Patient is a former smoker. Patient not on inhaler at home. Unclear about the clinical diagnosis of COPD as patient does not have PFT in the record. 3. Hyperlipidemia ? Continue with statin 4. DVT: Lovenox Medications at Discharge Home Medications simvastatin 20 mg tablet 20 mg PO QODAY Arthurites pain 07/24/13 ibuprofen-diphenhydramine citrate 200 mg-38 mg tablet (Advil PM) 1 cap PO QHS pain 10/26/20 apixaban 5 mg tablet (Eliquis) 2.5 mg (1/2 x 5 mg) PO BID 2 weeks #14 tabs 01/29/24 dexamethasone 6 mg tablet 6 mg PO DAILY 8 days #8 tabs 01/29/24 Physical Exam Narrative Seen and examined. Patient feeling give. Denies cough. He said he does not need Mucinex DM. Wants to go home Physical exam General: Alert, Oriented x3, Cooperative. Feeling good. No fatigue HEENT: Atraumatic, PERRLA, EOMI, Normocephalic Oral: Oral mucosa dry no Gingival or Mucosal Lesions/ Ulcerations Neck: Supple, No JVD, Negative Carotid Bruits Chest wall/Lungs: Air entry diminished in bilateral lung bases. No crepitation/rhonchi Cardiovascular: Regular rate, Regular Rhythm, Normal S1, Normal S2, No M/G/R Abdomen: Bowel Sounds Present, Soft, Non Tender, Non-Distended : No dysuria. No renal angle tenderness. No suprapubic tenderness. Extremities: No edema, Capillary Refill Less than 3 Seconds Skin: No rashes, No breakdown Musculoskeletal: No Tenderness to Palpation of Joints or Extremities Neurological: Cranial nerves II-XII grossly intact, DTR 2+/4. No acute focal neurological deficit. Psych/Mental Status: Flat affect Weight / BMI Weight Weight: 184 lb 1.376 oz Body Mass Index (BMI) 26.4 ABG / Lab / Microbiology Data 01/29/24 07:15 01/29/24 07:15 Laboratory: Laboratory Results - last 24 hr 01/27/24 20:40: Diff Path Review Reviewed 01/29/24 07:15: WBC 18.7 H, RBC 4.65, Hgb 14.4, Hct 43.8, MCV 94.2 H, MCH 31.0, MCHC 32.9, RDW Std Deviation 42.8, RDW Coeff of Kapil 12.4, Plt Count 130 L, MPV 10.8, Sodium 140, Potassium 4.0, Chloride 108 H, Carbon Dioxide 27.0, Anion Gap 5, BUN 29 H, Creatinine 1.14, Estim Creat Clear Calc 47.14, Est GFR (MDRD) Af Amer 78, Est GFR (MDRD) Non-Af 65, BUN/Creatinine Ratio 25.4 H, Glucose 131 H, Calcium 9.6, Total Bilirubin 0.60, AST 178 H, ALT 60, Alkaline Phosphatase 56, Total Protein 7.4, Albumin 3.7, Globulin 3.7, Albumin/Globulin Ratio 1.0 Microbiology: Microbiology 01/27/24 21:10 Mucosa - Nose SARS-CoV-2, Influenza & RSV (PCR) - Final SARS-CoV-2 (COVID 19 PCR) D/C Instructions Discharge Diet: No restrictions Weight Bearing Status: Weight bearing as tolerated Call your doctor if you observe: Fever of 101 or Higher, Coldness, Increased Pain, Numbness or Tingling, Change in Color, Inability to urinate, Inability to have a bowel movement, Shortness of breath, Dizziness, Fainting spells, Swelling in the ankles, Chest pain, Prolonged hiccupping, Increased palpitations (irregular heartbeat) and Calf discomfort DC O2, CPAP, BIPAP Needs Home O2 Discharge instructions: No When: IN 2 WEEKS Meaningful Use Info Meaningful Use Meaningful Use Diagnoses (Choose all that apply): None applicable Ischemic Stroke Statin Dosing Therapy Reference: STATIN DOSE THERAPY REFERENCE: * Patients > 75 years receive moderate or high dose statin therapy. * Patients 75 years or YOUNGER should receive HIGH intensity statin dose unless contraindicated. You will be required to document reason for non-treatment if statin daily dose does not meet guidelines. HIGH DOSE STATIN THERAPY DAILY Atorvastatin > than or = to 40 mg Rosuvastatin > than or = to 20 mg Amlodipine + Atorvastatin > than or = to 2.5/40 mg Ezetimibe + Simvastatin 10/80 mg Simvastatin 80mg Discharge Plan Admission Admit Date/Time: 01/28/24 00:23 Primary Reason for Your Visit: COVID-19 Attending Provider: Kumar Alcantara Primary Care Provider: Jose Beaver Consulting Providers: Abrahan Stokes Discharge Orders/Prescriptions Prescriptions: New Eliquis 5 mg Tablet 2.5 mg PO BID 14 Days Qty: 14 0RF dexamethasone 6 mg tablet 6 mg PO DAILY 8 Days Qty: 8 0RF Continued simvastatin 20 MG tablet 20 mg PO QODAY Held Advil PM 200-38 mg Tablet 1 cap PO QHS Hold Instructions: Hold while taking Eliquis Referrals / Follow Up: Jose Beaver DO [Primary Care Provider] - Within 2 Weeks (High blood pressure.) Disposition Disposition (needs filled in before D/C Order can be placed): Home, Self Care Charges/Coding Visit Charges Inpatient E&M: 91323 Disch Hosp >30min
[2024-01-29 13:32] VITALS: O2SAT 96; O2SAT 98
--- NOTE | 2024-01-29 14:31 | CASEMGMT ---
Patient has order to discharge. Patient does not qualify for home oxygen. Patient discharging on Eliquis. AVINASH HAUSER called [facility], copay is $16.33. AVINASH HAUSER in to discuss discharge with patient and updated regarding Eliqius copay. Patietn denies needs or help at discharge. Patient had no further questions or concerns.
[2024-01-29] MEDS: Losartan Potassium 50 MG Tablet PO (14:32)
== END 2024-01-29 15:46 | disposition home or self-care (01) | DRG 179 ==
LOC: ED 21:07 → PCU 01-28 05:32
PROVIDERS: Admitting Provider Family Medicine; Emergency Provider Surgery; PCP Family Medicine; Visit Provider Internal Medicine
DX: U07.1 COVID-19 (principal); E78.00 Pure hypercholesterolemia, unspecified; J44.9 Chronic obstructive pulmonary disease, unspecified; I10 Essential (primary) hypertension; M25.552 Pain in left hip; K21.9 Gastro-esophageal reflux disease without esophagitis; E86.0 Dehydration; R09.02 Hypoxemia; Z79.899 Other long term (current) drug therapy; Z87.891 Personal history of nicotine dependence
CPT/HCPCS: 36415; 71046; 73502; 80048; 80053; 81001; 83690; 84484; 85025; 85027; 87631; 93005; 99285; A4216; J0248; J2405

== ENCOUNTER 2024-04-24 09:50 | Day surgery (SDC) | payer MEDICARE, SELFPAY ==
--- NOTE | 2024-04-23 13:56 | PAT.ANE_ITS ---
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 When Was Last Pacemaker Check QUESTION #4 FULL TEXT: You/Your Family Experience fever (hyperthermia) with Anesthesia Last Oral Intake Last Oral intake: Last Oral Intake NPO since Meds taken in AM with sips of water? 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 schools Female No 04/23/24 12:22 HX of Motion Sickness No 04/23/24 12:22 HX of N/V After Surgery No 04/23/24 12:22 Non-Smoker Yes 04/23/24 12:22 Duration of Surgery greater No 04/23/24 12:22 than 60 minutes Number of Risk Factors 1 04/23/24 12:22 PONV Score Low Risk 04/23/24 12:22 Height & Weight Height & Weight: Anesthesia: Height & Weight Height 5 ft 10 in 01/28/24 09:27 Respiratory Assessment Respiratory Assessment - superintendent of schools: Respiratory Tract Infection Hx - superintendent of schools Hx Respiratory Tract Infection No 04/23/24 12:22 STOP Sleep Apnea STOP Sleep Apnea - superintendent of schools: STOP Sleep Apnea - superintendent of schools Hx Hypertension No 04/23/24 12:22 Hx Sleep Apnea No 04/23/24 12:22 CPAP No 11/28/23 06:54 BIPAP No 11/28/23 06:54 Do you snore loudly (louder No 04/23/24 12:22 than talking or can be heard Do you often feel tired/ No 04/23/24 12:22 fatigued/ sleepy during daytime? Has anyone observed you stop No 04/23/24 12:22 breathing during sleep? STOP Results Negative 04/23/24 12:22 QUESTION #5 FULL TEXT : Do you snore loudly (louder than talking or can be heard through closed doors)? 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 Specify any problems Hx of Preganancy in last 3 N/A 04/23/24 12:22 Months Nurse Filling Out Transfusion NBUCHER 04/23/24 12:22 & Questions: Date: 04/23/24 04/23/24 12:22 Time: 12:23 04/23/24 12:22 Patient unable to answer at this time (ie. confused, unrespo /Reproduction History /Reproductive History - superintendent of schools: /Reproductive Hx- superintendent of schools Hx Now No 04/23/24 12:22 Gestational Age (in weeks): EDC: Hx Hx Para Hx Section SAB No 04/23/24 12:22 [facility] Medical History (Updated 04/23/24 @ 12:26 by Barbra Patel) Wears hearing aid Loss of hearing Wears glasses Wears partial dentures Cancer Ambulates with cane Arthritis Difficulty swallowing History of echocardiogram COVID Olecranon bursitis of left elbow Acute maxillary sinusitis, unspecified Prepatellar bursitis, left knee High cholesterol Home Medications ?Medication ?Instructions ?Recorded ?Last Taken ?Type simvastatin 20 mg tablet 20 mg PO QODAY [place] in 07/24/13 10/25/20 History ibuprofen-diphenhydramine citrate 1 cap PO QHS pain Unknown History 200 mg-38 mg tablet (Advil PM) cyanocobalamin (vitamin B-12) 500 500 mcg PO QDAY 04/05 10/30 Unknown History mcg tablet Allergy/AdvReac Type Severity Reaction Status Date / Time No Known Allergies Allergy Verified 04/23/24 12:21 Family History (Updated 01/28/24 @ 00:[address] Abrahan Stokes MD) Other Heart disease Surgical History (Updated 04/23/24 @ 12:26 by Barbra Patel) History of esophagogastroduodenoscopy (EGD) H/O arthroscopic knee surgery Social History Smoking Status: Former smoker Audit: Pertinent Findings Pertinent Findings EKG Perinent findings: January 27, 2024. Sinus rhythm with first-degree AV block. Nonspecific T wave abnormality. Echo (EF%) pertinent findings: March 28, 2022. Ejection fraction 70%. Right ventricular systolic pressure is 24 mmHg. No aortic stenosis is noted. Recommendation Anesthesia Recommendation Anesthesia recommendation: OPTIMIZED for anesthesia
[2024-04-24] VITALS (8 sets, daily range): BP systolic 102–176; BP diastolic 58–76; PULSE 57–90; RESP 16–20; TEMP 36.1–36.3; O2SAT 93–100; BMI 25.9
--- NOTE | 2024-04-24 10:53 | PRE.ANES_ITS ---
ASA Classification* ASA Classification ASA Classification: 2 Assessment & Plan Anesthesia* Anesthesia Assessment Anesthesia Assessment: Discussed sedation and/or anesthesia options, risks, benefits, and alternatives with patient/parents/legal guardian/POA. Questions invited. The patient/parents/legal guardian/POA seems to understand and agrees to proceed with anesthesia plan. Reviewed the physical assessment, medical history, allergy history and patient home medications list prior to surgery/procedure/anesthetic and documented any changes. Performed airway and anesthesia risk assessments. Anesthesia Type Anesthesia Type: MAC History Source History Obtained from:: Patient and Chart Anesthesia Focused Assessment* Temperature: 97.4 F Pulse Rate: 60 Blood Pressure: 176/65 Respiratory Rate: 16 Pulse Ox: 98 Oxygen Delivery Method: Room Air Airway Assessment Mouth opens: >3 cm Mallampati Score: II Teeth Condition: Missing (Several missing teeth. Rest are tight.) and Partial (Patient has lower partial. It is out.) Neck Range of motion (ROM): Limited ROM (Decreased extension secondary to arthritis.) Focused Labs Anesthesia Preop lab: CBC WBC 18.7 K/mm3 (4.4-11.0) H 01/29/24 07:15 4 RBC 4.65 M/mm3 (4.6-6.2) 01/29/24 07:15 01/29/24 Hgb 14.4 g/dL (13.0-16.5) 01/29/24 07:15 01/29/24 Hct 43.8 % (40-54) 01/29/24 07:15 01/29/24 Plt Count 130 K/mm3 (150-450) L 01/29/24 07:15 01/29/24 CHEMISTRY Potassium 4.0 mmol/L (3.5-5.1) 01/29/24 07:15 01/29/24 Sodium 140 mmol/L (136-145) 01/29/24 07:15 01/29/24 Magnesium 2.1 mg/dL (1.6-2.6) 09/24/21 22:31 09/24/21 Phosphorus 2.5 mg/dL (2.5-4.9) 09/24/21 22:31 09/24/21 BUN 29 mg/dL (7-18) H 01/29/24 07:15 01/29/24 Creatinine 1.14 mg/dL (0.70-1.30) 01/29/24 07:15 01/29/24 Glucose 131 mg/dL (74-106) H 01/29/24 07:15 01/29/24 COAG Pre-Assessment Diagnosis/Proposed Procedure Planned Operative Procedure(s): EGD, dilation with balloon Anesthesia History 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 When Was Last Pacemaker Check QUESTION #4 FULL TEXT: You/Your Family Experience fever (hyperthermia) with Anesthesia Last Oral Intake Last Oral intake: Last Oral Intake NPO since 08:30 04/24/24 10:08 Meds taken in AM with sips of No 04/24/24 10:08 water? 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 Female No 04/23/24 12:22 HX of Motion Sickness No 04/23/24 12:22 HX of N/V After Surgery No 04/23/24 12:22 Non-Smoker Yes 04/23/24 12:22 Duration of Surgery greater No 04/23/24 12:22 than 60 minutes Number of Risk Factors 1 04/23/24 12:22 PONV Score Low Risk 04/23/24 12:22 Height & Weight Height & Weight: Anesthesia: Height & Weight Height 5 ft 10 in 04/24/24 10:08 Weight: 82 kg 04/24/24 10:08 Body Mass Index (BMI) 25.9 04/24/24 10:08 Respiratory Assessment Respiratory Assessment - automation and controls manager: Respiratory Tract Infection Hx - automation and controls manager Hx Respiratory Tract Infection No 04/23/24 12:22 STOP Sleep Apnea STOP Sleep Apnea - automation and controls manager: STOP Sleep Apnea - automation and controls manager Hx Hypertension No 04/23/24 12:22 Hx Sleep Apnea No 04/23/24 12:22 CPAP No 11/28/23 06:54 BIPAP No 11/28/23 06:54 Do you snore loudly (louder No 04/23/24 12:22 than talking or can be heard Do you often feel tired/ No 04/23/24 12:22 fatigued/ sleepy during daytime? Has anyone observed you stop No 04/23/24 12:22 breathing during sleep? STOP Results Negative 04/23/24 12:22 QUESTION #5 FULL TEXT : Do you snore loudly (louder than talking or can be heard through closed doors)? 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 Specify any problems Hx of Preganancy in last 3 N/A 04/23/24 12:22 Months Nurse Filling Out Transfusion NBUCHER 04/23/24 12:22 & Questions: Date: 04/23/24 04/23/24 12:22 Time: 12:23 04/23/24 12:22 Patient unable to answer at this time (ie. confused, unrespo /Reproduction History /Reproductive History - automation and controls manager: /Reproductive Hx- automation and controls manager Hx Now No 04/23/24 12:22 Gestational Age (in weeks): EDC: Hx Hx Para Hx Section SAB No 04/23/24 12:22 PFSH Medical History Wears hearing aid Loss of hearing Wears glasses Wears partial dentures Cancer Ambulates with cane Arthritis Difficulty swallowing History of echocardiogram COVID Olecranon bursitis of left elbow Acute maxillary sinusitis, unspecified Prepatellar bursitis, left knee High cholesterol Home Medications ?Medication ?Instructions ?Recorded ?Last Taken ?Type simvastatin 20 mg tablet 20 mg PO QODAY [place] pa in 07/24/13 10/25/20 History ibuprofen-diphenhydramine citrate 1 cap PO QHS pain Unknown History 200 mg-38 mg tablet (Advil PM) cyanocobalamin (vitamin B-12) 500 500 mcg PO QDAY 04/05 10/30 Unknown History mcg tablet Allergy/AdvReac Type Severity Reaction Status Date / Time No Known Allergies Allergy Verified 04/24/24 10:08 Family History Other Heart disease Surgical History History of esophagogastroduodenoscopy (EGD) H/O arthroscopic knee surgery Social History Smoking Status: Former smoker Review of Systems (Anesthesia) ROS Narrative System reviewed and no additional complaints, except as documented.
--- NOTE | 2024-04-24 11:00 | EGD_PTH ---
PATIENT: SAEID CHAMORRO LOC: EN U#:[id number] AGE/SX: 88/M ROOM: RE04/24/[address]: Dr. Mohit Barber DO : 1935 BED: DIS: 04/24/2024 SPEC #: [id number] RECD: 04/24/24 14:44 STATUS: KYLE RECarlito #: [id number] ARISTIDES: 04/24/24 11:[address]: Mohit Barber DEPT: SURGICAL PATHOLOGY RECD BY: Gabriel Siddiqui ENTERED: 04/24/24 15:18 SP TYPE: EGD BIOPSY HENRI DR: Dr. Jose Beaver DO Tissues: A - Esophagus, NOS Procedures: Special Stain Group I Surgery Specimen Level IV Alcian Blue/PAS (control) HEADER OPERATION: EGD with biopsy, Gold probe bipolar, dilation with balloon PRE-OP DIAGNOSIS: Acute esophageal obstruction, difficulty swallowing TISSUE SUBMITTED: A- Distal esophagus biopsy MICROSCOPIC DIAGNOSIS Distal esophagus, biopsy:Squamous epithelium and mucosa with foveolar mucosaIntestinal metaplasia is present (see comment)Alberto Barclay MD, 05/01/2024 COMMENT An Alcian blue PAS stain with appropriate controls highlights goblet cells in the foveolar epithelium. 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 GROSS DESCRIPTION A. Received in fixative is one container labeled with the patient's name and designated Distal esophagus biopsy. The specimen consists of multiple irregular fragments of light walton soft tissue that in aggregate measure 1.7 x 0.8 x 0.2 cm. The specimen is totally submitted in one cassette. MS/mr 04/24/2024 CPT:72910, 71875EA:3
--- NOTE | 2024-04-24 11:10 | PCM.HP.STD ---
HPI - General General Date of Admission: 04/24/24 Date of Service: 04/24/24 Chief Complaint: dysphagia HPI Narrative Complaint: difficulty swallowing Details: SAEID CHAMORRO, is a 88 M who presents to endoscopy because of trouble swallowing EGD .07.27 - Food in the esophagus. Removal was successful. - Severe Schatzki ring. Dilated. - Medium-sized hiatal hernia. - A large amount of food (residue) in the stomach. - No gross lesions in the duodenal bulb. [facility] established in 2021 after hospitalization for an acute esophageal obstruction. Pt underwent EGD and dilation at that time. Following this, he was doing well with no further issues with dysphagia. He presents to the office today with complaints of difficulty swallowing over the past 3 weeks. He notes he had a bad episode yesterday while eating chicken, rice and peas. He felt the food get stuck and had to drink a root beer to get it down. It took around 20 minutes for the food to eventually pass. He was salivating profusely but denies regurgitation of the food. He has also struggled with taking his vitamin b12. He denies any issues with liquids. He has no other GI concerns today. [facility] Medical History (Updated 04/24/24 @ 11:[address] Mohit Barber, DO) Wears hearing aid Loss of hearing Wears glasses Wears partial dentures Cancer Ambulates with cane Arthritis Difficulty swallowing History of echocardiogram COVID Olecranon bursitis of left elbow Acute maxillary sinusitis, unspecified Prepatellar bursitis, left knee High cholesterol Home Medications ?Medication ?Instructions ?Recorded ?Last Taken ?Type simvastatin 20 mg tablet 20 mg PO QODAY Arthurites pain 07/24/13 10/25/20 History ibuprofen-diphenhydramine citrate 1 cap PO QHS pain 10/26/20 Unknown History 200 mg-38 mg tablet (Advil PM) cyanocobalamin (vitamin B-12) 500 500 mcg PO QDAY 04/23/24 Unknown History mcg tablet Allergy/AdvReac Type Severity Reaction Status Date / Time No Known Allergies Allergy Verified 04/24/24 10:08 Family History Other Heart disease Surgical History History of esophagogastroduodenoscopy (EGD) H/O arthroscopic knee surgery Social History Smoking Status: Former smoker ROS Constitutional Constitutional: Denies fatigue, fever(s), poor appetite, weight gain or weight loss Gastrointestinal Gastrointestinal: Denies belching, bloating, change in bowel habits, change in stool character, chewing difficulty, coffee ground emesis, constipation, cramping, diarrhea, dyspepsia, dysphagia, early satiety, excessive flatus, fecal incontinence, heartburn, hematemesis, hematochezia, hemorrhoids, loose stools, melena, nausea, odynophagia, rectal bleeding, tenesmus, vomiting or weight changes Vital Signs Vital Signs Vital Signs: 04/24/24 10:08 04/24/24 10:08 04/24/24 11:01 Temperature 97.4 F L 97.4 F L Temperature Source Temporal Pulse Rate 60 60 Respiratory Rate 16 16 Respiratory Pattern Normal Blood Pressure 176/65 H 176/65 H Blood Pressure Mean 102 Blood Pressure Source Monitor Blood Pressure Position Sitting Blood Pressure Location Left Arm Pulse Ox 98 98 Oxygen Delivery Method Room Air Room Air Weight Weight: 180 lb 12.465 oz Body Mass Index (BMI) 25.9 Physical Exam Const alert, oriented x3, no apparent distress and healthy appearing General Appearance: cooperative GI normal to inspection, nondistended, normoactive bowel sounds, soft to palpation, non-tender and non-distended Percussion: normal to percussion Rectal Exam: deferred Assessment & Plan Assessment/Plan (1) Acute esophageal obstruction: (2) Difficulty swallowing: PLAN: Assessment and Plan Assessment and Plan (1) Dysphagia: Plan: This is an 88 yo male pt here today for evaluation of dysphagia x3 weeks. Pt initially established with [facility] in 2021 after being hospitalized for an acute esophageal obstruction. He underwent EGD with dilation and foreign body removal. Up until now he has not had further issues with his swallowing. He will undergo repeat EGD with dilation. He will continue eating slowly and with small bites. I advised he continue drinking soda as needed with meals. He is agreeable to plan. -EGD -Adivsied small bites, eating slowly, and drinking soda with meals -f/u as needed
--- NOTE | 2024-04-24 11:42 | OP.EGD_ITS ---
Patient Name: Paul Vega Procedure Date: 04/24/2024 11:17 AM Date of : 1935 Age: 88 Procedure: Upper GI endoscopy Indications: Dysphagia Providers: Mohit Barber DO Referring MD: Jose Beaver Medicines: Monitored Anesthesia Care Patient Profile: This is an 88 year old male. Refer to note in patient chart for documentation of history and physical. Patient has symptoms of chronic dysphagia. Complications: No immediate complications. Procedure: Pre-Anesthesia Assessment: - Prior to the procedure, a History and Physical was performed, and patient medications and allergies were reviewed. The patient is competent. The risks and benefits of the procedure and the sedation options and risks were discussed with the patient. All questions were answered and informed consent was obtained. Patient identification and proposed procedure were verified by the physician in the pre-procedure area. Mental Status Examination: alert and oriented. Airway Examination: normal oropharyngeal airway and neck mobility. Respiratory Examination: clear to auscultation. CV Examination: normal. ASA Grade Assessment: II - A patient with mild systemic disease. After reviewing the risks and benefits, the patient was deemed in satisfactory condition to undergo the procedure. The anesthesia plan was to use monitored anesthesia care (MAC). Immediately prior to administration of medications, the patient was re-assessed for adequacy to receive sedatives. The heart rate, respiratory rate, oxygen saturations, blood pressure, adequacy of pulmonary ventilation, and response to care were monitored throughout the procedure. The physical status of the patient was re-assessed after the procedure. After obtaining informed consent, the endoscope was passed under direct vision. Throughout the procedure, the patient's blood pressure, pulse, and oxygen saturations were monitored continuously. The Endoscope was introduced through the mouth, and advanced to the third part of duodenum. The upper GI endoscopy was accomplished without difficulty. The patient tolerated the procedure well. Scope In: 11:24:23 AM Scope Out: 11:35:14 AM Total Procedure Duration Time 0 hours 10 minutes 51 seconds Findings: A moderate Schatzki ring was found at the gastroesophageal junction. Biopsies were taken with a cold forceps for histology. Verification of patient identification for the specimen was done. Estimated blood loss was minimal. Coagulation for destruction of remaining portion of lesion using heater probe was successful. Estimated blood loss was minimal. LA Grade A (one or more mucosal breaks less than 5 mm, not extending between tops of 2 mucosal folds) esophagitis with no bleeding was found 38 to 40 cm from the incisors. A medium-sized hiatal hernia was present. The in the duodenum was normal. Impression: - Moderate Schatzki ring. Biopsied. Treated with a heater probe. - LA Grade A reflux esophagitis with no bleeding. - Medium-sized hiatal hernia. - Normal. Recommendation: - Discharge patient to home. - Resume previous diet. - Continue present medications. - Await pathology results. Procedure Code(s): --- Professional --- 74472, Esophagogastroduodenoscopy, flexible, transoral; with biopsy, single or multiple CPT copyright 2021 [employer]. All rights reserved. The codes documented in this report are preliminary and upon legislators review may be revised to meet current compliance requirements. Mohit Barber DO 04/24/2024 11:42:43 AM This report has been signed electronically. Number of Addenda: 0 Note Initiated On: 04/24/2024 11:17 AM
--- NOTE | 2024-04-24 11:43 | OP.CCLET_ITS ---
04/24/2024 Jose Beaver [address] [facility] [place] [address] Re : Upper GI endoscopy procedure for Paul Aliceafranck Dear Dr. Beaver This procedure was performed on April. My impressions and recommendations are as follows: Impressions : - Moderate Schatzki ring. Biopsied. Treated with a heater probe. - LA Grade A reflux esophagitis with no bleeding. - Medium-sized hiatal hernia. - Normal. Recommendations : - Discharge patient to home. - Resume previous diet. - Continue present medications. - Await pathology results. My findings are described in the full procedure note, which is enclosed. If I can be of further assistance, please feel free to contact me at . Sincerely, Mohit Friend, 04/24/2024 11:42:43 AM This report has been signed electronically.
--- NOTE | 2024-04-24 11:43 | PCM.POST.ANE ---
Anesthesia: Postop Eval I Current Vital Signs Temperature: 97.4 F Pulse Rate: 90 Blood Pressure: 120/66 Respiratory Rate: 20 Pulse Ox: 93 Assessment Airway patent: Yes Spontaneous unlabored respirations: Yes nausea: No Vomiting: No Anesthesia Complication: No Fluid Hydration Crystalloid volume administer (ml): 10 Total IV fluid infused: 10 Progress Note Anesthesia document: Postop Eval 1 completed: Yes
--- NOTE | 2024-04-24 12:28 | POSTOPAN2_ITS ---
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 Spontaneous unlabored Yes 04/24/24 11:43 INDEPENDENT LIVING ADVISOR.CSIR respirations Mental status nausea No 04/24/24 11:43 INDEPENDENT LIVING ADVISOR.CSIR Vomiting No 04/24/24 11:43 INDEPENDENT LIVING ADVISOR.CSIR Anesthesia Postop Eval I: Fluid Summary Crystalloid volume administer 10 04/24/24 11:43 INDEPENDENT LIVING ADVISOR.CSIR (ml) Colloids volume administered ( ml) Blood Product volume administered (ml) Total IV fluid infused 10 04/24/24 11:43 INDEPENDENT LIVING ADVISOR.CSIR Anesthesia Postop Eval I: Summary Notes Anesthesia Complication No 04/24/24 11:43 INDEPENDENT LIVING ADVISOR.CSIR Anesthesia Complication Comment: Post-operative progress note Anesthesia: Postop Eval II Evaluation Mental status: Awake Pain Level: 0 nausea: No Vomiting: No
--- NOTE | 2024-04-24 12:28 | PCM.POSTANE2 ---
Anesthesia Postop Eval I Sum Postop Eval Completion status Anesthesia document: Postop Eval 1 completed: Yes Anesthesia Postop Eval I Summary Anesthesia Postop Eval I Summary: Anesthesia Postop Eval I: Assessment Summary Airway patent Yes 04/24/24 11:43 PER ASSESSMENT [email or web address] Spontaneous unlabored Yes 04/24/24 11:43 PER ASSESSMENT [email or web address] respirations Mental status nausea No 04/24/24 11:43 PER ASSESSMENT [email or web address] Vomiting No 04/24/24 11:43 PER ASSESSMENT [email or web address] Anesthesia Postop Eval I: Fluid Summary Crystalloid volume administer 10 04/24/24 11:43 PER ASSESSMENT [email or web address] (ml) Colloids volume administered ( ml) Blood Product volume administered (ml) Total IV fluid infused 10 04/24/24 11:43 PER ASSESSMENT [email or web address] Anesthesia Postop Eval I: Summary Notes Anesthesia Complication No 04/24/24 11:43 PER ASSESSMENT [email or web address] Anesthesia Complication Comment: Post-operative progress note Anesthesia: Postop Eval II Evaluation Mental status: Awake Pain Level: 0 nausea: No Vomiting: No
== END 2024-04-24 12:45 | disposition home or self-care (01) ==
LOC: EN 09:52 → AC 09:58
PROVIDERS: PCP Family Medicine; Referring Provider Family Medicine; Visit Provider Internal Medicine Gastroenterology
PROC: 0DJ08ZZ Inspection of Upper Intestinal Tract, Via Natural or Artificial Opening Endoscopic (ICD-10-PCS; CPT 43235; principal; 2024-04-24 10:55)
DX: K22.70 Barrett's esophagus without dysplasia (principal); K44.9 Diaphragmatic hernia without obstruction or gangrene; Z87.891 Personal history of nicotine dependence; K22.2 Esophageal obstruction; E78.00 Pure hypercholesterolemia, unspecified
CPT/HCPCS: 43239; 43270; 88305; 88312; C1889; J2405

== ENCOUNTER → 2024-08-14 | Outpatient (CLI) | payer MEDICARE, SELFPAY ==
--- NOTE | 2024-08-14 14:02 | RAD_ITS ---
PROCEDURE: HIP, UNI W/ PELVIS 2-3 VIEWS 08/14/2024 REASON FOR EXAM: R LATERAL HIP PAIN TECHNIQUE: HIP, UNI W/ PELVIS 2-3 VIEWS COMPARISON: 01/27/2024 FINDINGS: Bones: No acute obvious fractures. Joints: Normal alignment. Mild degenerative changes. Soft tissues: Mild calcifications lateral to femur neck. RAD/HIP, UNI W/ Pelvis 2-3 Views IMPRESSION: Degenerative changes with no acute fracture. Reading [facility]
== END | disposition home or self-care (01) ==
LOC: RAD 14:02
PROVIDERS: PCP Family Medicine; Referring Provider Family Medicine; Visit Provider Family Medicine
DX: M25.551 Pain in right hip (principal)
CPT/HCPCS: 73502

== ENCOUNTER → 2024-12-24 | Outpatient (CLI) | payer MEDICARE, SELFPAY ==
[2024-12-24 12:18] LABS: Hematocrit 41.6 % (40-54); Hemoglobin 13.7 g/dL (13.0-16.5); Immature Granulocytes Count 0.030 X10^3/uL (0.0-0.0); Mean Corp Hgb Conc 32.9 g/dL (32-36); Mean Corpuscular Volume 97.2 fL (80-94); Mean Platelet Vol. 10.9 fl (6.2-12.0); NRBC Flagged by Analyzer 0 % (0-5); Platelet Count 114 K/mm3 (150-450); RBC Distribution Width CV 12.1 % (11.6-14.6); RBC Distribution Width SD 43.6 fl (35.1-43.9); Red Blood Count 4.28 M/mm3 (4.6-6.2); White Blood Count 8.1 K/mm3 (4.4-11.0)
[2024-12-24 12:28] LABS: Prothrombin Time (Protime)PT. 13.2 SECONDS (11.7-14.9)
[2024-12-24 12:42] LABS: AST(SGOT) 30 U/L (<=37); Alanine Aminotransfer ALT/SGPT 24 U/L (<=46); Albumin, Serum 4.2 g/dL (3.4-4.8); Alkaline Phosphatase 49 U/L (40-129); Anion Gap 9 (5-15); BUN 19 mg/dL (4-19); BUN/Creat Ratio 19.8 RATIO (10-20); Calcium,Total 9.4 mg/dL (7.6-11.0); Carbon Dioxide 26.4 mmol/L (21.0-32.0); Chloride 106 mmol/L (98-108); Globulin 2.4 g/dL (2.2-4.2); Glucose 99 mg/dL (70-99); Potassium 4.5 mmol/L (3.3-5.1)
== END | disposition home or self-care (01) ==
LOC: BFHLAB 09:54
PROVIDERS: PCP Family Medicine; Visit Provider Family Medicine
DX: D69.6 Thrombocytopenia, unspecified (principal); R58 Hemorrhage, not elsewhere classified; R74.01 Elevation of levels of liver transaminase levels
CPT/HCPCS: 36415; 80053; 85025; 85610